=== PATIENT | female | born 1960 | race Two or more races ===

== ENCOUNTER → 2017-02-14 | Outpatient (REF) | payer OTHER ==
[2017-02-14 12:27] LABS: MEAN CORPUSCULAR HEMOGLOBIN 31.2 pg (27.0-33.0); MEAN CORPUSCULAR HGB CONC 33.7 g/dl (32.0-36.5); MEAN CORPUSCULAR VOLUME 92.5 fl (80.0-96.0); RED CELL DISTRIBUTION WIDTH 12.6 % (11.5-14.5); WHITE BLOOD COUNT 5.1 K/mm3 (4.0-10.0)
[2017-02-14 12:40] LABS: ALBUMIN 3.9 GM/DL (3.2-5.2); ALBUMIN/GLOBULIN RATIO 1.03 (1.00-1.93); ALKALINE PHOSPHATASE 71 U/L (45-117); ALT/SGPT 24 U/L (12-78); ANION GAP 6 MEQ/L (8-16); AST/SGOT 10 U/L (15-37); BILIRUBIN,TOTAL 0.3 MG/DL (0.2-1.0); BLOOD UREA NITROGEN 16 MG/DL (7-18); CARBON DIOXIDE LEVEL 30 MEQ/L (21-32); CHLORIDE LEVEL 103 MEQ/L (98-107); CHOLESTEROL LEVEL 208 MG/DL (<200); CREATININE FOR GFR 0.69 MG/DL (0.55-1.02); GLOMERULAR FILTRATION RATE > 60.0 (>51); GLUCOSE, FASTING 237 MG/DL (70-105); SODIUM LEVEL 139 MEQ/L (136-145); TOTAL PROTEIN 7.7 GM/DL (6.4-8.2); TRIGLYCERIDES LEVEL 128 MG/DL (<150)
== END ==
LOC: M SFHCADAM 09:08
PROVIDERS: ATTEND Physician Assistant
DX: R06.09 Other forms of dyspnea (principal); Z13.220 Encounter for screening for lipoid disorders; Z13.1 Encounter for screening for diabetes mellitus

== ENCOUNTER → 2017-03-17 | Outpatient (REF) | payer OTHER ==
[2017-03-17 13:59] LABS: ANION GAP 3 MEQ/L (8-16); BLOOD UREA NITROGEN 15 MG/DL (7-18); CALCIUM LEVEL 8.7 MG/DL (8.5-10.1); CARBON DIOXIDE LEVEL 30 MEQ/L (21-32); CHLORIDE LEVEL 105 MEQ/L (98-107); GLOMERULAR FILTRATION RATE > 60.0 (>51); GLUCOSE, FASTING 217 MG/DL (70-105); POTASSIUM SERUM 5.1 MEQ/L (3.5-5.1); SODIUM LEVEL 138 MEQ/L (136-145)
== END ==
LOC: M SFHCPLAZ 08:24
PROVIDERS: ATTEND Physician Assistant
DX: R73.9 Hyperglycemia, unspecified (principal)

== ENCOUNTER → 2017-04-26 | Outpatient (REF) | payer OTHER | LOC: M SFHCADAM 16:08 | PROVIDERS: ATTEND Physician Assistant | DX: E11.9 Type 2 diabetes mellitus without complications (principal) ==

== ENCOUNTER → 2017-04-27 | Outpatient (REF) | payer OTHER | LOC: M SFHCADAM 09:04 | PROVIDERS: ATTEND Physician Assistant | DX: E11.9 Type 2 diabetes mellitus without complications (principal) ==

== ENCOUNTER → 2017-07-31 | Outpatient (REF) | payer OTHER ==
[~2017-07-31] MED LIST: ASPI1TAB PO; ATOR1TAB21 PO; METF10004 PO
[2017-07-31 13:59] LABS: ALBUMIN/GLOBULIN RATIO 1.25 (1.00-1.93); ALKALINE PHOSPHATASE 65 U/L (45-117); ALT/SGPT 35 U/L (12-78); ANION GAP 9 MEQ/L (8-16); AST/SGOT 14 U/L (15-37); BILIRUBIN,TOTAL 0.5 MG/DL (0.2-1.0); BLOOD UREA NITROGEN 17 MG/DL (7-18); CARBON DIOXIDE LEVEL 28 MEQ/L (21-32); CHLORIDE LEVEL 106 MEQ/L (98-107); CREATININE FOR GFR 0.59 MG/DL (0.55-1.02); GLOMERULAR FILTRATION RATE > 60.0 (>51); GLUCOSE, FASTING 150 MG/DL (70-105); POTASSIUM SERUM 4.7 MEQ/L (3.5-5.1); SODIUM LEVEL 143 MEQ/L (136-145); TOTAL PROTEIN 7.2 GM/DL (6.4-8.2)
== END ==
LOC: M SFHCADAM 08:05
PROVIDERS: ATTEND Physician Assistant
DX: E11.9 Type 2 diabetes mellitus without complications (principal)

== ENCOUNTER 2017-08-18 09:13 | Outpatient (CLI) | payer OTHER ==
[~2017-08-18] VITALS: Ht 154.9 cm; Wt 74.4 kg
[2017-08-18] MEDS ORDERED: NS 1,000 ML IV ONE (09:30)
[2017-08-18] MEDS ORDERED: PROPOFOL 200 MG/20 ML VIAL As Ordered ONE (09:34)
--- NOTE | 2017-08-18 10:18 | ROOR ---
Patient Name: Yasmeen rAmando Procedure Date: 08/18/2017 9:56 AM Date of : 1960 Age: 57 Room: [facility] Gender: Female Note Status: Finalized Procedure: Total Colonoscopy to Cecum Indications: Screening for colorectal malignant neoplasm Providers: Chris Sprague MD Referring MD: KEIRA Cherry Requesting Provider: Medicines: Monitored Anesthesia Care Complications: No immediate complications. Procedure: Pre-Anesthesia Assessment: - The heart rate, respiratory rate, oxygen saturations, blood pressure, adequacy of pulmonary ventilation, and response to care were monitored throughout the procedure. The Colonoscope was introduced through the anus and advanced to the cecum, identified by appendiceal orifice and ileocecal valve. The colonoscopy was performed without difficulty. The patient tolerated the procedure well. The quality of the bowel preparation was excellent. Findings: The perianal and digital rectal examinations were normal. Non-bleeding internal hemorrhoids were found during retroflexion. The hemorrhoids were small and Grade I (internal hemorrhoids that do not prolapse). Multiple small and large-mouthed diverticula were found in the recto-sigmoid colon, sigmoid colon and descending colon. The exam was otherwise without abnormality on direct and retroflexion views. Impression: - Non-bleeding internal hemorrhoids. - Diverticulosis in the recto-sigmoid colon, in the sigmoid colon and in the descending colon. - The examination was otherwise normal on direct and retroflexion views. - No specimens collected. - The exam was otherwise normal to the cecum. Recommendation: - Patient has a contact number available for emergencies. The signs and symptoms of potential delayed complications were discussed with the patient. Return to normal activities tomorrow. Written discharge instructions were provided to the patient. - High fiber diet. - Discharge patient to home. - Continue present medications. - Repeat colonoscopy in 10 years for screening purposes. - Return to referring physician. - The findings and recommendations were discussed with the patient's family. Chris Sprague MD Crhis Sprague MD 08/18/2017 10:17:41 AM This report has been signed electronically. Number of Addenda: 0 Note Initiated On: 08/18/2017 9:56 AM Estimated Blood Loss: Estimated blood loss: none.
[2017-08-18 10:42] VITALS: BP 133/59
== END 2017-08-18 10:48 | disposition home or self-care (01) ==
LOC: M OPP 09:13
PROVIDERS: ATTEND Internal Medicine Gastroenterology
DX: Z12.11 Encounter for screening for malignant neoplasm of colon (principal); K64.0 First degree hemorrhoids; K57.30 Diverticulosis of large intestine without perforation or abscess without bleeding; E78.5 Hyperlipidemia, unspecified; E11.9 Type 2 diabetes mellitus without complications; Z78.0 Asymptomatic menopausal state; R06.83 Snoring; Z79.82 Long term (current) use of aspirin; Z79.84 Long term (current) use of oral hypoglycemic drugs; Z79.899 Other long term (current) drug therapy

== ENCOUNTER → 2017-10-28 | Outpatient (REF) | payer OTHER ==
[2017-10-28 12:54] LABS: ANION GAP 8 MEQ/L (8-16); BLOOD UREA NITROGEN 18 MG/DL (7-18); CALCIUM LEVEL 9.4 MG/DL (8.5-10.1); CARBON DIOXIDE LEVEL 29 MEQ/L (21-32); CHLORIDE LEVEL 103 MEQ/L (98-107); CREATININE FOR GFR 0.63 MG/DL (0.55-1.02); GLOMERULAR FILTRATION RATE > 60.0 (>51); GLUCOSE, FASTING 149 MG/DL (70-105); POTASSIUM SERUM 4.7 MEQ/L (3.5-5.1); SODIUM LEVEL 140 MEQ/L (136-145)
== END ==
LOC: M SFHCADAM 09:02
PROVIDERS: ATTEND Physician Assistant
DX: E11.9 Type 2 diabetes mellitus without complications (principal)

== ENCOUNTER → 2018-06-18 | Outpatient (REF) | payer OTHER ==
[2018-06-18 13:53] LABS: ALBUMIN 3.9 GM/DL (3.2-5.2); ALBUMIN/GLOBULIN RATIO 1.05 (1.00-1.93); ALKALINE PHOSPHATASE 60 U/L (45-117); ALT/SGPT 42 U/L (12-78); ANION GAP 7 MEQ/L (8-16); AST/SGOT 21 U/L (7-37); BILIRUBIN,TOTAL 0.4 MG/DL (0.2-1.0); BLOOD UREA NITROGEN 15 MG/DL (7-18); CARBON DIOXIDE LEVEL 28 MEQ/L (21-32); CHLORIDE LEVEL 107 MEQ/L (98-107); CHOLESTEROL LEVEL 110 MG/DL (<200); CHOLESTEROL RISK RATIO 2.037 (<5); CREATININE FOR GFR 0.72 MG/DL (0.55-1.30); FREE T4 1.01 NG/DL (0.76-1.46); GLOMERULAR FILTRATION RATE > 60.0 (>51); GLUCOSE, FASTING 140 MG/DL (70-100); HDL CHOLESTEROL 54 MG/DL (>40); LDL CHOLESTEROL 41.6 MG/DL (<100); NON-HDL-C 56 MG/DL; SODIUM LEVEL 142 MEQ/L (136-145); TOTAL PROTEIN 7.6 GM/DL (6.4-8.2); TRIGLYCERIDES LEVEL 72 MG/DL (<150)
[2018-06-18 14:00] LABS: POTASSIUM SERUM 5.2 MEQ/L (3.5-5.1)
[2018-06-18 14:32] LABS: ESTIMATED AVERAGE GLUCOSE 160 MG/DL (60-110); HEMOGLOBIN A1c 7.2 %
[2018-06-19 13:47] LABS: CREATININE, URINE 62.2 MG/DL; MALB URINE SIEMENS 6.3 MG/L; MAU/CREAT RATIO 10.1 MCG/MG (0.0-30.0)
== END ==
LOC: M SFHCADAM 09:09
DX: E11.9 Type 2 diabetes mellitus without complications (principal)
CPT/HCPCS: 84443

== ENCOUNTER → 2018-10-12 | Outpatient (REF) | payer OTHER ==
[2018-10-12 13:45] LABS: ANION GAP 6 MEQ/L (8-16); BLOOD UREA NITROGEN 16 MG/DL (7-18); CARBON DIOXIDE LEVEL 30 MEQ/L (21-32); CHLORIDE LEVEL 101 MEQ/L (98-107); FREE T4 1.07 NG/DL (0.76-1.46); GLOMERULAR FILTRATION RATE > 60.0 (>51); GLUCOSE, FASTING 170 MG/DL (70-100); SODIUM LEVEL 137 MEQ/L (136-145)
[2018-10-12 14:27] LABS: ESTIMATED AVERAGE GLUCOSE 166 MG/DL (60-110); HEMOGLOBIN A1c 7.4 %
== END ==
LOC: M SFHCADAM 09:56
DX: E11.9 Type 2 diabetes mellitus without complications (principal); E03.9 Hypothyroidism, unspecified

== ENCOUNTER → 2018-10-13 | Outpatient (CLI) | payer OTHER | LOC: M WHC 08:06 | DX: Z12.31 Encounter for screening mammogram for malignant neoplasm of breast (principal) | CPT/HCPCS: 77067 ==

== ENCOUNTER → 2019-02-25 | Outpatient (REF) | payer OTHER ==
[~2019-02-25] MED LIST changes: -ASPI1TAB PO; +ASPI81TA26 PO
[2019-02-25 12:42] LABS: ALBUMIN 4.2 GM/DL (3.2-5.2); ALT/SGPT 28 U/L (12-78); BILIRUBIN,TOTAL 0.4 MG/DL (0.2-1.0); BLOOD UREA NITROGEN 19 MG/DL (7-18); CALCIUM LEVEL 9.2 MG/DL (8.5-10.1); CARBON DIOXIDE LEVEL 27 MEQ/L (21-32); CHLORIDE LEVEL 106 MEQ/L (98-107); CREATININE FOR GFR 0.73 MG/DL (0.55-1.30); GLOMERULAR FILTRATION RATE > 60.0 (>51); GLUCOSE, FASTING 138 MG/DL (70-100); POTASSIUM SERUM 4.7 MEQ/L (3.5-5.1); SODIUM LEVEL 139 MEQ/L (136-145); TOTAL PROTEIN 7.5 GM/DL (6.4-8.2)
[2019-02-25 13:03] LABS: HEMOGLOBIN A1c 7.2 %
== END ==
LOC: M SFHCADAM 08:30
PROVIDERS: ATTEND Physician Assistant
DX: E11.9 Type 2 diabetes mellitus without complications (principal); E78.5 Hyperlipidemia, unspecified

== ENCOUNTER 2019-03-14 09:50 | Emergency (ER) | payer OTHER ==
[~2019-03-14] VITALS: Ht 152.4 cm; Wt 76.8 kg
[2019-03-14 09:51] VITALS: BP 143/71
[2019-03-14] MEDS ORDERED: VALT1TAB PO (10:39)
[2019-03-14] MEDS ORDERED: valACYclovir HCL 500 MG TAB PO ONE (10:45)
== END 2019-03-14 10:57 | disposition home or self-care (01) ==
LOC: M ED 09:50
DX: R21 Rash and other nonspecific skin eruption (principal); B02.9 Zoster without complications; B34.9 Viral infection, unspecified; E11.9 Type 2 diabetes mellitus without complications; E78.9 Disorder of lipoprotein metabolism, unspecified; Z79.899 Other long term (current) drug therapy; Z79.82 Long term (current) use of aspirin

== ENCOUNTER 2019-06-24 12:30 | Emergency (ER) | payer OTHER ==
[~2019-06-24] VITALS: Ht 152.4 cm; Wt 72.7 kg
[~2019-06-24 12:30] MED LIST changes: +VALT1TAB PO
[2019-06-24] MEDS ORDERED: LEVO50TA5 (12:47)
[2019-06-24] MEDS ORDERED: STEG15TA (12:47)
[2019-06-24] MEDS ORDERED: LORA-674 (12:47)
[2019-06-24 13:21] LABS: BASO # 0.1 10^3/uL (0.0-0.2); BASO % 0.8 % (0.0-1.0); EOS % 0.3 % (0.0-3.0); HEMATOCRIT 41.7 % (36.0-47.0); HEMOGLOBIN 14.4 g/dl (12.0-15.5); LYMPH # 1.9 10^3/uL (1.5-4.5); LYMPH % 21.6 % (24.0-44.0); MEAN CORPUSCULAR HEMOGLOBIN 32.5 pg (27.0-33.0); MEAN CORPUSCULAR HGB CONC 34.5 g/dl (32.0-36.5); MEAN CORPUSCULAR VOLUME 94.1 fl (80.0-96.0); MONO # 0.4 10^3/uL (0.0-0.8); MONO % 4.8 % (0.0-5.0); NEUTROPHILS # 6.3 10^3/uL (1.8-7.7); NEUTROPHILS % 71.8 % (36.0-66.0); PLATELET COUNT, AUTOMATED 332 10^3/uL (150-450); RED BLOOD COUNT 4.43 10^6/uL (4.00-5.40); WHITE BLOOD COUNT 8.8 10^3/uL (4.0-10.0)
[2019-06-24] MEDS ORDERED: GI COCKTAIL 50ML BTL(HYOSCYAMINE/MAALOX/LIDOCAINE VISCOUS)(1:3:1) PO ONE (13:30)
[2019-06-24 13:51] LABS: ALT/SGPT 32 U/L (12-78); BILIRUBIN,DIRECT 0.1 MG/DL (0.0-0.2); BILIRUBIN,TOTAL 0.5 MG/DL (0.2-1.0); BLOOD UREA NITROGEN 20 MG/DL (7-18); CALCIUM LEVEL 9.8 MG/DL (8.5-10.1); CARBON DIOXIDE LEVEL 24 MEQ/L (21-32); CHLORIDE LEVEL 108 MEQ/L (98-107); CK-MB VALUE MASS < 1.0 NG/ML (<3.6); CPK CREATINE PHOSPHOKINASE 72 U/L (26-192); CREATININE FOR GFR 0.78 MG/DL (0.55-1.30); GLOMERULAR FILTRATION RATE > 60.0 (>51); GLUCOSE, FASTING 144 MG/DL (70-100); LIPASE 142 U/L (73-393); MB/CK RELATIVE INDEX 1.39 (< OR =4); MYOGLOBIN 22 NG/ML (13-71); POTASSIUM SERUM 4.5 MEQ/L (3.5-5.1); SODIUM LEVEL 139 MEQ/L (136-145); TOTAL PROTEIN 7.8 GM/DL (6.4-8.2); TROPONIN I < 0.02 NG/ML (< 0.10)
[2019-06-24] MEDS ORDERED: CLOTCRE3 TOP (15:39)
--- NOTE | 2019-06-24 15:40 | REP ---
CHEST, TWO VIEWS: There is no evidence of acute infiltrate. No pleural effusion is seen. The heart is normal in size. The mediastinal silhouette is unremarkable. The visualized osseous structures are intact. IMPRESSION: No acute pulmonary disease. Electronically Signed by Zain Hernandez MD 06/25/2019 09:26 A
[2019-06-24 16:23] LABS: CK-MB VALUE MASS < 1.0 NG/ML (<3.6); CPK CREATINE PHOSPHOKINASE 75 U/L (26-192); MB/CK RELATIVE INDEX 1.33 (< OR =4); TROPONIN I < 0.02 NG/ML (< 0.10)
[2019-06-24] MEDS ORDERED: CARA1TAB6 PO (16:33)
[2019-06-24 16:39] VITALS: BP 127/73
--- NOTE | 2019-06-26 07:42 | ECGEPIP ---
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
== END 2019-06-24 17:20 | disposition home or self-care (01) ==
LOC: M ED 12:30
DX: E86.0 Dehydration (principal); L30.4 Erythema intertrigo; K29.70 Gastritis, unspecified, without bleeding; E11.9 Type 2 diabetes mellitus without complications; E03.9 Hypothyroidism, unspecified; E78.5 Hyperlipidemia, unspecified; Z86.19 Personal history of other infectious and parasitic diseases; Z82.49 Family history of ischemic heart disease and other diseases of the circulatory system; Z79.899 Other long term (current) drug therapy; Z79.84 Long term (current) use of oral hypoglycemic drugs; Z79.82 Long term (current) use of aspirin

== ENCOUNTER → 2019-07-10 | Outpatient (REF) | payer OTHER ==
[~2019-07-10] MED LIST changes: +CARA1TAB6 PO; +CLOTCRE3 TOP; +LEVO50TA5; +LORA-674; +STEG15TA
[2019-07-10 17:04] LABS: BLOOD UREA NITROGEN 15 MG/DL (7-18); CALCIUM LEVEL 8.8 MG/DL (8.5-10.1); CARBON DIOXIDE LEVEL 30 MEQ/L (21-32); CHLORIDE LEVEL 105 MEQ/L (98-107); CREATININE FOR GFR 0.71 MG/DL (0.55-1.30); GLOMERULAR FILTRATION RATE > 60.0 (>51); GLUCOSE, FASTING 110 MG/DL (70-100); POTASSIUM SERUM 4.5 MEQ/L (3.5-5.1); SODIUM LEVEL 140 MEQ/L (136-145)
[2019-07-10 17:12] LABS: HEMOGLOBIN A1c 7.6 %
[2019-07-10 17:24] LABS: MALB URINE SIEMENS 11.4 MG/L
== END ==
LOC: M SFHCADAM 10:51
PROVIDERS: ATTEND Physician Assistant
DX: E11.9 Type 2 diabetes mellitus without complications (principal)

== ENCOUNTER → 2019-07-10 | Outpatient (CLI) | payer OTHER | LOC: M ADAMS 10:58 | PROVIDERS: ATTEND Physician Assistant | DX: E11.9 Type 2 diabetes mellitus without complications (principal) ==

== ENCOUNTER → 2020-01-05 | Outpatient (REF) | payer OTHER ==
[2020-01-05 13:08] LABS: HEMATOCRIT 43.7 % (36.0-47.0); HEMOGLOBIN 14.3 g/dl (12.0-15.5); MEAN CORPUSCULAR HEMOGLOBIN 31.8 pg (27.0-33.0); MEAN CORPUSCULAR HGB CONC 32.7 g/dl (32.0-36.5); MEAN CORPUSCULAR VOLUME 97.3 fl (80.0-96.0); PLATELET COUNT, AUTOMATED 376 10^3/uL (150-450); RED BLOOD COUNT 4.49 10^6/uL (4.00-5.40); WHITE BLOOD COUNT 6.6 10^3/uL (4.0-10.0)
[2020-01-05 13:31] LABS: ALBUMIN 4.2 GM/DL (3.2-5.2); ALT/SGPT 38 U/L (12-78); BILIRUBIN,TOTAL 0.5 MG/DL (0.2-1.0); BLOOD UREA NITROGEN 18 MG/DL (7-18); CALCIUM LEVEL 9.6 MG/DL (8.5-10.1); CARBON DIOXIDE LEVEL 29 MEQ/L (21-32); CHLORIDE LEVEL 105 MEQ/L (98-107); CHOLESTEROL LEVEL 128 MG/DL (<200); CREATININE FOR GFR 0.79 MG/DL (0.55-1.30); FREE T4 1.13 NG/DL (0.76-1.46); GLOMERULAR FILTRATION RATE > 60.0 (>51); GLUCOSE, FASTING 146 MG/DL (70-100); HDL CHOLESTEROL 50 MG/DL (>40); LDL CHOLESTEROL 52 MG/DL (<100); NON-HDL-C 78 MG/DL; POTASSIUM SERUM 4.7 MEQ/L (3.5-5.1); SODIUM LEVEL 140 MEQ/L (136-145); TOTAL PROTEIN 7.7 GM/DL (6.4-8.2); TRIGLYCERIDES LEVEL 131 MG/DL (<150)
[2020-01-05 13:53] LABS: HEMOGLOBIN A1c 7.1 %
== END ==
LOC: M SFHCADAM 09:21
PROVIDERS: ATTEND Physician Assistant
DX: E11.9 Type 2 diabetes mellitus without complications (principal); K29.70 Gastritis, unspecified, without bleeding; E03.9 Hypothyroidism, unspecified; E78.5 Hyperlipidemia, unspecified

== ENCOUNTER 2020-02-20 09:48 | Emergency (ER) | payer OTHER ==
[~2020-02-20] VITALS: Ht 152.4 cm; Wt 74.1 kg
[2020-02-20 10:20] LABS: BASO # 0.1 10^3/uL (0.0-0.2); BASO % 0.6 % (0.0-1.0); EOS % 0.2 % (0.0-3.0); HEMOGLOBIN 14.3 g/dl (12.0-15.5); LYMPH # 1.5 10^3/uL (1.5-5.0); LYMPH % 14.1 % (24.0-44.0); MEAN CORPUSCULAR HEMOGLOBIN 31.8 pg (27.0-33.0); MEAN CORPUSCULAR VOLUME 93.3 fl (80.0-96.0); MONO # 0.3 10^3/uL (0.0-0.8); NEUTROPHILS # 8.6 10^3/uL (1.5-8.5); NEUTROPHILS % 81.4 % (36.0-66.0); PLATELET COUNT, AUTOMATED 382 10^3/uL (150-450); WHITE BLOOD COUNT 10.5 10^3/uL (4.0-10.0)
[2020-02-20 10:31] LABS: INR 0.93; PROTHROMBIN TIME 12.2 SECONDS (11.8-14.0)
[2020-02-20 10:32] LABS: PARTIAL THROMBOPLASTIN TIME 28.6 SECONDS (25.0-38.4)
[2020-02-20] MEDS ORDERED: ONDANSETRON 4MG/2ML VIAL (J2405) IV ONE (10:45)
[2020-02-20] MEDS ORDERED: NS 1,000 ML IV ONE (10:45)
[2020-02-20] MEDS ORDERED: HYDROMORPHONE HCL 0.5 MG/ 0.5 ML SYRINGE (J1170 PER 1) IV PRN (10:45)
[2020-02-20 10:50] LABS: BLOOD UREA NITROGEN 18 MG/DL (7-18); CALCIUM LEVEL 9.8 MG/DL (8.5-10.1); CARBON DIOXIDE LEVEL 26 MEQ/L (21-32); CHLORIDE LEVEL 104 MEQ/L (98-107); CK-MB VALUE MASS < 1.0 NG/ML (<3.6); CPK CREATINE PHOSPHOKINASE 65 U/L (26-192); CREATININE FOR GFR 0.79 MG/DL (0.55-1.30); FREE T4 1.24 NG/DL (0.76-1.46); GLOMERULAR FILTRATION RATE > 60.0 (>51); GLUCOSE, FASTING 182 MG/DL (70-100); MB/CK RELATIVE INDEX 1.54 (< OR =4); POTASSIUM SERUM 3.9 MEQ/L (3.5-5.1); SODIUM LEVEL 137 MEQ/L (136-145); TROPONIN I < 0.02 NG/ML (< 0.10)
[2020-02-20 11:05] LABS: ALBUMIN 4.5 GM/DL (3.2-5.2); BILIRUBIN,DIRECT 0.2 MG/DL (0.0-0.2); BILIRUBIN,TOTAL 0.4 MG/DL (0.2-1.0); TOTAL PROTEIN 8.4 GM/DL (6.4-8.2)
[2020-02-20] MEDS ORDERED: ISOVUE-370 76% 100ML VIAL (Q9967) As Ordered ONE (11:21)
--- NOTE | 2020-02-20 12:17 | REP ---
CHEST, SINGLE VIEW: Single view of the chest is performed and compared to a prior study of 06/24/2019. No acute infiltrate is seen. There is mild left ventricular prominence. Mediastinal silhouette is unremarkable. There is slight elevation of the right hemidiaphragm unchanged. IMPRESSION: No acute pulmonary disease. Electronically Signed by Zain Hernandez MD 02/20/2020 12:23 P
--- NOTE | 2020-02-20 12:46 | REP ---
CT ANGIOGRAM CHEST: TECHNIQUE: Axial contrast enhanced images from the thoracic inlet to the upper abdomen using 100 mL Isovue 370 intravenous contrast material with multiplanar reformations. There is no CT evidence of pulmonary embolism. There is no thoracic aortic aneurysm or dissection. Heart is slightly enlarged. There is no pleura or pericardial effusion. There is no mediastinal, hilar, or chest wall lymphadenopathy. There are mild dependent atelectatic changes in both lungs. IMPRESSION: No CT evidence of pulmonary embolism or aortic dissection. Mild cardiomegaly. Electronically Signed by Zain Hernandez MD 02/20/2020 12:50 P
--- NOTE | 2020-02-20 12:52 | REP ---
CT ABDOMEN AND PELVIS WITH IV CONTRAST: TECHNIQUE: Axial contrast enhanced images from the lung bases to the pubic symphysis using 100 mL Isovue 370 intravenous contrast material with multiplanar reformations. The liver demonstrates a hypodense nodule in the left lobe which measures approximately 9 mm. This is too small to characterize. It probably represents a small cyst or hemangioma. Spleen is normal in size with no intrinsic abnormality. The adrenal glands are normal. No pancreatic mass is seen. There are gallstones in the gallbladder. There is no gallbladder wall thickening. There is no evidence of biliary dilatation. Kidneys demonstrate a probable subcentimeter cyst in the left upper pole as well as right upper pole. There is no hydronephrosis bilaterally. There is no hydroureter. No bladder calculus is seen. There is a small amount of air in the bladder likely from recent catheterization. No bladder wall mass is seen. There is no abdominal aortic aneurysm. There is no adenopathy. There is no free air or free fluid. There are scattered diverticula of the sigmoid colon, without evidence of acute diverticulitis. The appendix is normal. No pelvic mass is seen. There is a subcentimeter calcified fibroid in the left uterus. No anterior abdominal wall defect is seen. IMPRESSION: 9 mm nodule in the left lobe of the liver is of doubtful significance likely representing a small cyst or hemangioma. There are gallstones in the gallbladder without gallbladder wall thickening or biliary dilatation. No free or free fluid. No anterior abdominal wall defect. Mild sigmoid diverticulosis without acute diverticulitis. Small amount of air in the bladder is likely from recent catheterization. Electronically Signed by Zain Hernandez MD 02/20/2020 12:58 P
[2020-02-20 13:36] LABS: CK-MB VALUE MASS < 1.0 NG/ML (<3.6); CPK CREATINE PHOSPHOKINASE 60 U/L (26-192); MB/CK RELATIVE INDEX 1.67 (< OR =4); TROPONIN I < 0.02 NG/ML (< 0.10)
--- NOTE | 2020-02-20 14:24 | REP ---
RIGHT UPPER QUADRANT ULTRASOUND: Real-time sonographic evaluation of the right upper quadrant performed. Gallstone is seen in the neck of the gallbladder which does not appear to move with changes in patient positioning. There is no gallbladder wall thickening or pericholecystic fluid. There is no intrahepatic or extrahepatic biliary dilatation, common bile duct measuring 5 mm. There is a 6 mm cyst in the left lobe of the liver. Visualized pancreas is grossly unremarkable. Right kidney is normal in size with no hydronephrosis measuring 10 cm in length. There is a 6 mm cyst in the mid right kidney. IMPRESSION: Gallstone lodged in the neck of the gallbladder. No gallbladder wall thickening or pericholecystic fluid or biliary dilatation. Electronically Signed by Zain Hernandez MD 02/20/2020 02:40 P
[2020-02-20 14:30] VITALS: BP 131/65
[2020-02-20] MEDS ORDERED: NORC1TAB7 PO (14:42)
[2020-02-20] MEDS ORDERED: ONDA4TAB6 PO (14:42)
--- NOTE | 2020-02-20 19:06 | ECGEPIP ---
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
--- NOTE | 2020-02-20 19:08 | ECGEPIP ---
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
--- NOTE | 2020-02-21 14:36 | ED PDOC ---
Post-Departure Follow-Up dr phipps and nelson douglass faxed formal report of [facility] for [facility] Leta Oliveira MD Feb 21, 2020 14:36
== END 2020-02-20 14:49 | disposition home or self-care (01) ==
LOC: M ED 09:48
DX: K80.50 Calculus of bile duct without cholangitis or cholecystitis without obstruction (principal); K76.89 Other specified diseases of liver; K57.32 Diverticulitis of large intestine without perforation or abscess without bleeding; N28.1 Cyst of kidney, acquired; E11.9 Type 2 diabetes mellitus without complications; I51.7 Cardiomegaly; Z79.84 Long term (current) use of oral hypoglycemic drugs; Z79.899 Other long term (current) drug therapy
CPT/HCPCS: 71045; 71275; 74177; 76705; 80048; 80076; 81001; 82150; 82550; 82553; 83605; 84439; 84443; 85025; 85610; 85730; 86850; 86900; 86901; 93005; 93041; 94760; 96361; 96374; 96375; 99285; J1170; J2405; Q9967

== ENCOUNTER → 2020-07-25 | Outpatient (REF) | payer OTHER ==
[~2020-07-25] MED LIST changes: +NORC1TAB7 PO; +ONDA4TAB6 PO
[2020-07-25 13:53] LABS: ALBUMIN 4.3 GM/DL (3.2-5.2); ALT/SGPT 40 U/L (12-78); BILIRUBIN,TOTAL 0.4 MG/DL (0.2-1.0); BLOOD UREA NITROGEN 14 MG/DL (7-18); CALCIUM LEVEL 9.4 MG/DL (8.5-10.1); CARBON DIOXIDE LEVEL 29 MEQ/L (21-32); CHLORIDE LEVEL 107 MEQ/L (98-107); CREATININE FOR GFR 0.78 MG/DL (0.55-1.30); GLOMERULAR FILTRATION RATE > 60.0 (>51); GLUCOSE, FASTING 128 MG/DL (70-100); POTASSIUM SERUM 4.6 MEQ/L (3.5-5.1); SODIUM LEVEL 140 MEQ/L (136-145)
[2020-07-25 13:59] LABS: VITAMIN B12 LEVEL 272 PG/ML
[2020-07-25 14:04] LABS: FOLATE > 24.0 NG/ML
[2020-07-25 14:18] LABS: MALB URINE SIEMENS 12.3 MG/L; MAU/CREAT RATIO 10.4 MCG/MG (0.0-30.0)
[2020-07-25 14:41] LABS: HEMOGLOBIN A1c 7.3 %
== END ==
LOC: M SFHCADAM 12:50
PROVIDERS: ATTEND Physician Assistant
DX: E11.9 Type 2 diabetes mellitus without complications (principal); E78.9 Disorder of lipoprotein metabolism, unspecified; E03.9 Hypothyroidism, unspecified; K29.70 Gastritis, unspecified, without bleeding; D75.89 Other specified diseases of blood and blood-forming organs

== ENCOUNTER → 2020-12-01 | Outpatient (REF) | payer OTHER ==
[2020-12-01 13:42] LABS: HEMOGLOBIN A1c 6.4 %
[2020-12-01 13:46] LABS: ALBUMIN 4.4 GM/DL (3.2-5.2); ALT/SGPT 48 U/L (12-78); BILIRUBIN,TOTAL 0.5 MG/DL (0.2-1.0); BLOOD UREA NITROGEN 19 MG/DL (7-18); CALCIUM LEVEL 9.4 MG/DL (8.5-10.1); CARBON DIOXIDE LEVEL 28 MEQ/L (21-32); CHLORIDE LEVEL 105 MEQ/L (98-107); CREATININE FOR GFR 0.61 MG/DL (0.55-1.30); GLOMERULAR FILTRATION RATE > 60.0 (>51); GLUCOSE, FASTING 104 MG/DL (70-100); POTASSIUM SERUM 4.7 MEQ/L (3.5-5.1); SODIUM LEVEL 139 MEQ/L (136-145); TOTAL PROTEIN 7.9 GM/DL (6.4-8.2)
[2020-12-01 13:50] LABS: VITAMIN B12 LEVEL 662 PG/ML
[2020-12-01 13:51] LABS: CREATININE, URINE 90.9 MG/DL; MAU/CREAT RATIO 9.9 MCG/MG (0.0-30.0)
== END ==
LOC: M SFHCADAM 09:28
PROVIDERS: ATTEND Physician Assistant
DX: E11.9 Type 2 diabetes mellitus without complications (principal); D75.89 Other specified diseases of blood and blood-forming organs

== ENCOUNTER → 2021-05-25 | Outpatient (REF) | payer OTHER ==
[2021-05-25 13:16] LABS: HEMOGLOBIN A1c 6.8 %
[2021-05-25 13:31] LABS: ALBUMIN 4.2 GM/DL (3.2-5.2); ALT/SGPT 35 U/L (12-78); BILIRUBIN,TOTAL 0.4 MG/DL (0.2-1.0); BLOOD UREA NITROGEN 19 MG/DL (7-18); CALCIUM LEVEL 9.3 MG/DL (8.5-10.1); CARBON DIOXIDE LEVEL 28 MEQ/L (21-32); CHLORIDE LEVEL 105 MEQ/L (98-107); CREATININE FOR GFR 0.74 MG/DL (0.55-1.30); GLOMERULAR FILTRATION RATE > 60.0 (>51); GLUCOSE, FASTING 124 MG/DL (70-100); POTASSIUM SERUM 5.1 MEQ/L (3.5-5.1); SODIUM LEVEL 139 MEQ/L (136-145); TOTAL PROTEIN 7.6 GM/DL (6.4-8.2)
[2021-05-25 13:34] LABS: FOLATE 13.4 NG/ML; VITAMIN B12 LEVEL 473 PG/ML
== END ==
LOC: M SFHCADAM 07:59
PROVIDERS: ATTEND Physician Assistant
DX: E11.9 Type 2 diabetes mellitus without complications (principal)

== ENCOUNTER 2021-10-22 11:04 | Emergency (ER) | payer OTHER ==
[~2021-10-22] VITALS: Ht 152.4 cm; Wt 72.8 kg
--- OUTSIDE RECORDS SUMMARY | 2021-10-22 11:10 | CCD ---
Author Author [facility] Organization [facility] Address Unknown Phone Unavailable Care Team Providers Care Manager Embalmer Funeral Director Name Role Phone Fadi Cha MD Unavailable Unavailable Fadi Cha MD Unavailable Unavailable Fadi Cha MD Unavailable Unavailable Fadi Cha MD Unavailable Unavailable Fadi Cha MD Unavailable Unavailable Fadi Cha MD Unavailable Unavailable Fadi Cha MD Unavailable Unavailable Fadi Cha MD Unavailable Unavailable Fadi Cha MD Unavailable Unavailable Fadi Cha MD Unavailable Unavailable Fadi Cha MD Unavailable Unavailable Fadi Cha MD Unavailable Unavailable Fadi Cha MD Unavailable Unavailable Fadi Cha MD Unavailable Unavailable Fadi Cha MD Unavailable Unavailable Fadi Cha MD Unavailable Unavailable Fadi Cha MD Unavailable Unavailable Fadi Cha MD Unavailable Unavailable Fadi Cha MD Unavailable Unavailable Fadi Cha MD Unavailable Unavailable Fadi Cha MD Unavailable Unavailable Fadi Cha MD Unavailable Unavailable Fadi Cha MD Unavailable Unavailable Fadi Cha MD Unavailable Unavailable Fadi Cha MD Unavailable Unavailable Fadi Cha MD Unavailable Unavailable Fadi Cha MD Unavailable Unavailable Fadi Cha MD Unavailable Unavailable Fadi Cha MD Unavailable Unavailable Fadi Cha MD Unavailable Unavailable Fadi Cha MD Unavailable Unavailable Fadi Cha MD Unavailable Unavailable Fadi Cha MD Unavailable Unavailable Fadi Cha MD Unavailable Unavailable Fadi Cha MD Unavailable Unavailable Fadi Cha MD Unavailable Unavailable Fadi Cha MD Unavailable Unavailable Fadi Cha MD Unavailable Unavailable Fadi Cha MD Unavailable Unavailable Fadi Cha MD Unavailable Unavailable Fadi Cha MD Unavailable Unavailable Fadi Cha MD Unavailable Unavailable Fadi Cha MD Unavailable Unavailable Fadi Cha MD Unavailable Unavailable Fadi Cha MD Unavailable Unavailable Fadi Cha MD Unavailable Unavailable Fadi Cha MD Unavailable Unavailable Fadi Cha MD Unavailable Unavailable Fadi Cha MD Unavailable Unavailable Fadi Cha MD Unavailable Unavailable Fadi Cha MD Unavailable Unavailable Fadi Cha MD Unavailable Unavailable Fadi Cha MD Unavailable Unavailable Fadi Cha MD Unavailable Unavailable Fadi Cha MD Unavailable Unavailable Fadi Cha MD Unavailable Unavailable Fadi Cha MD Unavailable Unavailable Fadi Cha MD Unavailable Unavailable Fadi Cha MD Unavailable Unavailable Fadi Cha MD Unavailable Unavailable Fadi Cha MD Unavailable Unavailable Fadi Cha MD Unavailable Unavailable Fadi Cha MD Unavailable Unavailable Fadi Cha MD Unavailable Unavailable Fadi Cha MD Unavailable Unavailable Fadi Cha MD Unavailable Unavailable Fadi Cha MD Unavailable Unavailable Fadi Cha MD Unavailable Unavailable Fadi Cha MD Unavailable Unavailable Fadi Cha MD Unavailable Unavailable Fadi Cha MD Unavailable Unavailable Fadi Cha MD Unavailable Unavailable Fadi Cha MD Unavailable Unavailable Fadi Cha MD Unavailable Unavailable Fadi hCa MD Unavailable Unavailable Fadi Cha MD Unavailable Unavailable Fadi Cha MD Unavailable Unavailable Fadi Cha MD Unavailable Unavailable Fadi Cha MD Unavailable Unavailable Fadi Cha MD Unavailable Unavailable Fadi Cha MD Unavailable Unavailable Fadi Cha MD Unavailable Unavailable Fadi Cha MD Unavailable Unavailable Fadi Cha MD Unavailable Unavailable Fadi Cha MD Unavailable Unavailable Fadi Cha MD Unavailable Unavailable Fadi Cha MD Unavailable Unavailable Fadi Cha MD Unavailable Unavailable Fadi Cha MD Unavailable Unavailable Fadi Cha MD Unavailable Unavailable Fadi Cha MD Unavailable Unavailable Fadi Cha MD Unavailable Unavailable Fadi Cha MD Unavailable Unavailable Fadi Cha MD Unavailable Unavailable Gan, Pratt Cheryl Unavailable Unavailable Gan, Pratt Cheryl Unavailable Unavailable Gan, Pratt Cheryl Unavailable Unavailable Gan, Pratt Cheryl Unavailable Unavailable Gan, Pratt Cheryl Unavailable Unavailable Gan, Pratt Cheryl Unavailable Unavailable Gan, Pratt Cheryl Unavailable Unavailable Gan, Pratt Cheryl Unavailable Unavailable Gan, Pratt Cheryl Unavailable Unavailable Gan, Pratt Cheryl Unavailable Unavailable Gan, Pratt Cheryl Unavailable Unavailable Gan, Pratt Cheryl Unavailable Unavailable Gan, Pratt Cheryl Unavailable Unavailable Re-disclosure Warning The records that you are about to access may contain information from federally-assisted alcohol or drug abuse programs. If such information is present, then the following federally mandated warning applies: This information has been disclosed to you from records protected by federal confidentiality rules (42 CFR part 2). The federal rules prohibit you from making any further disclosure of this information unless further disclosure is expressly permitted by the written consent of the person to whom it pertains or as otherwise permitted by 42 CFR part 2. A general authorization for the release of medical or other information is NOT sufficient for this purpose. The Federal rules restrict any use of the information to criminally investigate or prosecute any alcohol or drug abuse patient.The records that you are about to access may contain highly sensitive health information, the redisclosure of which is protected by Article 27-F of the [facility] Public Health law. If you continue you may have access to information: Regarding HIV / AIDS; Provided by facilities licensed or operated by the [facility] Office of Mental Health; or Provided by the [facility] Office for People With Developmental Disabilities. If such information is present, then the following [facility] mandated warning applies: This information has been disclosed to you from confidential records which are protected by state law. State law prohibits you from making any further disclosure of this information without the specific written consent of the person to whom it pertains, or as otherwise permitted by law. Any unauthorized further disclosure in violation of state law may result in a fine or alf sentence or both. A general authorization for the release of medical or other information is NOT sufficient authorization for further disc losure. Allergies and Adverse Reactions Type Description Substance Reaction Status Data Source(s ) Allergy to substance Allergy to substance Allergy to substance PILLO ([facility]) Allergy to substance Allergy to substance Allergy to substance CORVALLIS ([facility]) Family History Family Member Name Family Member Gender Family Member Status Date o f Status Description Data Source(s) Unknown Unknown Problem MEDENT ([facility] Unknown Unknown Problem MEDENT ([facility]) SIBLINGS Unknown Unknown Problem MEDENT ([facility]) Unknown Unknown Problem MEDENT ([facility]) Unknown Unknown Problem MEDENT ([facility]) Encounters Encounter Providers Location Date Indications Data Source(s ) [place] [address] [facility] [address] 09/05/2021 12:00:00 AM EDT eCW1 ([facility]) [place] [address] [facility] [address] 06/05/2021 12:00:00 AM EDT eCW1 ([facility]) Out[place] [address] [facility] [address] 05/29/2021 12:00:00 AM EDT eCW1 ([facility]) [place] [address] [facility] [address] 03/05/2021 12:00:00 AM EDT eCW1 ([facility]) [facility]: [address] [place] [phone], Ph. Attender: Cheryl Gan [facility] 02/07/2021 12:00:00 AM EDT PILLO ([facility]) Hipolito Cha MD: [address] [place] [address], Ph. Attender: Hipolito Cha MD [facility] 01/10/2021 12:00:00 AM EST PILLO ([facility]) Hipolito Cha MD: [address] [place] [address], Ph. Attender: Hipolito Cha MD [facility] 01/10/2021 12:00:00 AM EST [place] ([facility]) [place] [address] [facility] [address] 10/04/2020 12:00:00 AM EST eCW1 ([facility]) Unknown [address] [facility] [address] 09/07/2020 12:00:00 AM EDT eCW1 ([facility]) Immunizations Vaccine Date Status Description Data Source(s) COVID-19, mRNA, LNP-S, PF, 100 mcg/0.5 mL dose 02/07/2021 10 :22:08 AM EDT completed 10.5 mL PILLO ([facility]) COVID-19 VACCINE Moderna 02/07/2021 12:00:00 AM EDT completed AZSIIS Vaccine Series Complete: YESThis Data wa s Submitted to [facility] Via [facility] [employer]. COVID-19, mRNA, LNP-S, PF, 100 mcg/0.5 mL dose 01/10/2021 05 :23:58 PM EST completed 10.5 mL PILLO ([facility]) COVID-19, mRNA, LNP-S, PF, 100 mcg/0.5 mL dose 01/10/2021 05 :23:58 PM EST completed .5 mL PILLO ([facility]) COVID-19 VACCINE Moderna 01/10/2021 12:00:00 AM EST completed AZSIIS Vaccine Series Complete: NOThis Data was Submitted to [facility] [employer]. Medications Medication Brand Name Start Date Product Form Dose Route Admi nistrative Instructions Pharmacy Instructions Status Indications Reaction Description Data Source(s) 50 mcg 10/03/2021 12:00:00 AM EST tablet 30 TAKE ONE TABLET BY MOUTH EVERY MORNING ON AN EMPTY STOMACH TAKE ONE TABLET BY MOUTH EVERY MORNING O N AN EMPTY STOMACH SOLD: 10/06/2021 [facility] atorvastatin 20 MG Oral Tablet ATORVASTATIN CALCIUM 09/05/2021 1 2:00:00 AM EDT tablet 30 TAKE ONE TABLET BY MOUTH AT BEDT CARLOS TAKE ONE TABLET BY MOUTH AT BEDTIME SOLD: 10/06/2021 [facility] atorvastatin 20 MG Oral Tablet ATORVASTATIN CALCIUM 09/05/2021 1 2:00:00 AM EDT tablet 30 TAKE ONE TABLET BY MOUTH AT BEDT CARLOS TAKE ONE TABLET BY MOUTH AT BEDTIME SOLD: 09/05/2021 [facility] 81 mg 09/04/2021 12:00:00 AM EDT tablet,delayed release (DR/EC) 30 TAKE ONE TABLET BY MOUTH EVERY DAY TAKE ONE TABLET BY MOUTH EVERY DAY SOLD: 09/05/2021 [facility] 81 mg 09/04/2021 12:00:00 AM EDT tablet,delayed release (DR/EC) 30 TAKE ONE TABLET BY MOUTH EVERY DAY TAKE ONE TABLET BY MOUTH EVERY DAY SOLD: 10/06/2021 [facility] 15 mg 08/02/2021 12:00:00 AM EDT tablet 30 TAKE ONE TABLET BY MOUTH EVERY DAY TAKE ONE TABLET BY MOUTH EVERY DAY SOLD: 08/07/2021 [facility] 15 mg 08/02/2021 12:00:00 AM EDT tablet 30 TAKE ONE TABLET BY MOUTH EVERY DAY TAKE ONE TABLET BY MOUTH EVERY DAY SOLD: 09/05/2021 [facility] 15 mg 08/02/2021 12:00:00 AM EDT tablet 30 TAKE ONE TABLET BY MOUTH EVERY DAY TAKE ONE TABLET BY MOUTH EVERY DAY SOLD: 10/06/2021 [facility] 1,000 mg 06/06/2021 12:00:00 AM EDT tablet 60 TAKE ONE TABLET BY MOUTH TWICE A DAY WITH MEALS TAKE ONE TABLET BY MOUTH TWICE A DAY WITH MEALS SOLD: 10/06/2021 [facility] 1,000 mg 06/06/2021 12:00:00 AM EDT tablet 60 TAKE ONE TABLET BY MOUTH TWICE A DAY WITH MEALS TAKE ONE TABLET BY MOUTH TWICE A DAY WITH MEALS SOLD: 07/07/2021 [facility] 1,000 mg 06/06/2021 12:00:00 AM EDT tablet 60 TAKE ONE TABLET BY MOUTH TWICE A DAY WITH MEALS TAKE ONE TABLET BY MOUTH TWICE A DAY WITH MEALS SOLD: 09/05/2021 [facility] 1,000 mg 06/06/2021 12:00:00 AM EDT tablet 60 TAKE ONE TABLET BY MOUTH TWICE A DAY WITH MEALS TAKE ONE TABLET BY MOUTH TWICE A DAY WITH MEALS SOLD: 06/07/2021 [facility] 1,000 mg 06/06/2021 12:00:00 AM EDT tablet 60 TAKE ONE TABLET BY MOUTH TWICE A DAY WITH MEALS TAKE ONE TABLET BY MOUTH TWICE A DAY WITH MEALS SOLD: 08/07/2021 [facility] 1.5 mg/0.5 mL 05/08/2021 12:00:00 AM EDT pen injector 2 INJECT 1 DOSE UNDER THE SKIN ONCE WEEKLY INJECT 1 DOSE UNDER THE SKIN ONCE WEEKLY SOLD: 10/02/2021 [facility] 1.5 mg/0.5 mL 05/08/2021 12:00:00 AM EDT pen injector 2 INJECT 1 DOSE UNDER THE SKIN ONCE WEEKLY INJECT 1 DOSE UNDER THE SKIN ONCE WEEKLY SOLD: 05/08/2021 [facility] 1.5 mg/0.5 mL 05/08/2021 12:00:00 AM EDT pen injector 2 INJECT 1 DOSE UNDER THE SKIN ONCE WEEKLY INJECT 1 DOSE UNDER THE SKIN ONCE WEEKLY SOLD: 07/28/2021 [facility] 1.5 mg/0.5 mL 05/08/2021 12:00:00 AM EDT pen injector 2 INJECT 1 DOSE UNDER THE SKIN ONCE WEEKLY INJECT 1 DOSE UNDER THE SKIN ONCE WEEKLY SOLD: 06/14/2021 [facility] 1.5 mg/0.5 mL 05/08/2021 12:00:00 AM EDT pen injector 2 INJECT 1 DOSE UNDER THE SKIN ONCE WEEKLY INJECT 1 DOSE UNDER THE SKIN ONCE WEEKLY SOLD: 08/26/2021 [facility] 50 mcg 05/05/2021 12:00:00 AM EDT tablet 30 TAKE ONE TABLET BY MOUTH EVERY MORNING ON EMPTY STOMACH TAKE ONE TABLET BY MOUTH EVERY MORNING O N EMPTY STOMACH SOLD: 09/05/2021 [facility] 50 mcg 05/05/2021 12:00:00 AM EDT tablet 30 TAKE ONE TABLET BY MOUTH EVERY MORNING ON EMPTY STOMACH TAKE ONE TABLET BY MOUTH EVERY MORNING O N EMPTY STOMACH SOLD: 08/07/2021 [facility] 50 mcg 05/05/2021 12:00:00 AM EDT tablet 30 TAKE ONE TABLET BY MOUTH EVERY MORNING ON EMPTY STOMACH TAKE ONE TABLET BY MOUTH EVERY MORNING O N EMPTY STOMACH SOLD: 06/07/2021 [facility] 50 mcg 05/05/2021 12:00:00 AM EDT tablet 30 TAKE ONE TABLET BY MOUTH EVERY MORNING ON EMPTY STOMACH TAKE ONE TABLET BY MOUTH EVERY MORNING O N EMPTY STOMACH SOLD: 07/07/2021 [facility] 50 mcg 05/05/2021 12:00:00 AM EDT tablet 30 TAKE ONE TABLET BY MOUTH EVERY MORNING ON EMPTY STOMACH TAKE ONE TABLET BY MOUTH EVERY MORNING O N EMPTY STOMACH SOLD: 05/08/2021 [facility] 81 mg 04/04/2021 12:00:00 AM EDT tablet,delayed release (DR/EC) 30 TAKE ONE TABLET BY MOUTH EVERY DAY TAKE ONE TABLET BY MOUTH EVERY DAY SOLD: 05/08/2021 [facility] 81 mg 04/04/2021 12:00:00 AM EDT tablet,delayed release (DR/EC) 30 TAKE ONE TABLET BY MOUTH EVERY DAY TAKE ONE TABLET BY MOUTH EVERY DAY SOLD: 08/07/2021 [facility] 15 mg 04/04/2021 12:00:00 AM EDT tablet 30 TAKE ONE TABLET BY MOUTH EVERY DAY TAKE ONE TABLET BY MOUTH EVERY DAY SOLD: 07/07/2021 [facility] 15 mg 04/04/2021 12:00:00 AM EDT tablet 30 TAKE ONE TABLET BY MOUTH EVERY DAY TAKE ONE TABLET BY MOUTH EVERY DAY SOLD: 05/08/2021 [facility] 81 mg 04/04/2021 12:00:00 AM EDT tablet,delayed release (DR/EC) 30 TAKE ONE TABLET BY MOUTH EVERY DAY TAKE ONE TABLET BY MOUTH EVERY DAY SOLD: 04/08/2021 [facility] 81 mg 04/04/2021 12:00:00 AM EDT tablet,delayed release (DR/EC) 30 TAKE ONE TABLET BY MOUTH EVERY DAY TAKE ONE TABLET BY MOUTH EVERY DAY SOLD: 06/07/2021 [facility] 81 mg 04/04/2021 12:00:00 AM EDT tablet,delayed release (DR/EC) 30 TAKE ONE TABLET BY MOUTH EVERY DAY TAKE ONE TABLET BY MOUTH EVERY DAY SOLD: 07/07/2021 [facility] 15 mg 04/04/2021 12:00:00 AM EDT tablet 30 TAKE ONE TABLET BY MOUTH EVERY DAY TAKE ONE TABLET BY MOUTH EVERY DAY SOLD: 04/08/2021 [facility] 15 mg 04/04/2021 12:00:00 AM EDT tablet 30 TAKE ONE TABLET BY MOUTH EVERY DAY TAKE ONE TABLET BY MOUTH EVERY DAY SOLD: 06/07/2021 [facility] atorvastatin 20 MG Oral Tablet ATORVASTATIN CALCIUM 03/06/2021 1 2:00:00 AM EDT tablet 30 TAKE ONE TABLET BY MOUTH AT BEDT CARLOS TAKE ONE TABLET BY MOUTH AT BEDTIME SOLD: 04/08/2021 [facility] atorvastatin 20 MG Oral Tablet ATORVASTATIN CALCIUM 03/06/2021 1 2:00:00 AM EDT tablet 30 TAKE ONE TABLET BY MOUTH AT BEDT CARLOS TAKE ONE TABLET BY MOUTH AT BEDTIME SOLD: 08/07/2021 [facility] atorvastatin 20 MG Oral Tablet ATORVASTATIN CALCIUM 03/06/2021 1 2:00:00 AM EDT tablet 30 TAKE ONE TABLET BY MOUTH AT BEDT CARLOS TAKE ONE TABLET BY MOUTH AT BEDTIME SOLD: 06/07/2021 [facility] atorvastatin 20 MG Oral Tablet ATORVASTATIN CALCIUM 03/06/2021 1 2:00:00 AM EDT tablet 30 TAKE ONE TABLET BY MOUTH AT BEDT CARLOS TAKE ONE TABLET BY MOUTH AT BEDTIME SOLD: 03/09/2021 [facility] atorvastatin 20 MG Oral Tablet ATORVASTATIN CALCIUM 03/06/2021 1 2:00:00 AM EDT tablet 30 TAKE ONE TABLET BY MOUTH AT BEDT CARLOS TAKE ONE TABLET BY MOUTH AT BEDTIME SOLD: 07/07/2021 [facility] atorvastatin 20 MG Oral Tablet ATORVASTATIN CALCIUM 03/06/2021 1 2:00:00 AM EDT tablet 30 TAKE ONE TABLET BY MOUTH AT BEDT CARLOS TAKE ONE TABLET BY MOUTH AT BEDTIME SOLD: 05/08/2021 [facility] Metformin hydrochloride 1000 MG Oral Tablet 1,000 mg METFORM IN HCL 01/02/2021 12:00:00 AM EST tablet 60 TAKE ONE TABLET BY MOUTH TWO TIMES A DAY WITH MEALS TAKE ONE TABLET BY MOUTH TWO TIMES A DAY WITH MEALS SOLD: 02/07/2021 [facility] 1,000 mg 01/02/2021 12:00:00 AM EST tablet 60 TAKE ONE TABLET BY MOUTH TWO TIMES A DAY WITH MEALS TAKE ONE TABLET BY MOUTH TWO TIMES A DAY WITH MEALS SO LD: 04/08/2021 [facility] 1,000 mg 01/02/2021 12:00:00 AM EST tablet 60 TAKE ONE TABLET BY MOUTH TWO TIMES A DAY WITH MEALS TAKE ONE TABLET BY MOUTH TWO TIMES A DAY WITH MEALS SO LD: 03/09/2021 [facility] Metformin hydrochloride 1000 MG Oral Tablet 1,000 mg METFORM IN HCL 01/02/2021 12:00:00 AM EST tablet 60 TAKE ONE TABLET BY MOUTH TWO TIMES A DAY WITH MEALS TAKE ONE TABLET BY MOUTH TWO TIMES A DAY WITH MEALS SOLD: 01/08/2021 [facility] 1,000 mg 01/02/2021 12:00:00 AM EST tablet 60 TAKE ONE TABLET BY MOUTH TWO TIMES A DAY WITH MEALS TAKE ONE TABLET BY MOUTH TWO TIMES A DAY WITH MEALS SO LD: 05/08/2021 [facility] 50 mcg 12/05/2020 12:00:00 AM EST tablet 30 TAKE ONE TABLET BY MOUTH EVERY DAY IN THE MORNING TAKE ONE TABLET BY MOUTH EVERY DAY IN THE MORNING SOLD : 01/08/2021 [facility] 50 mcg 12/05/2020 12:00:00 AM EST tablet 30 TAKE ONE TABLET BY MOUTH EVERY DAY IN THE MORNING TAKE ONE TABLET BY MOUTH EVERY DAY IN THE MORNING SOLD : 03/09/2021 [facility] 50 mcg 12/05/2020 12:00:00 AM EST tablet 30 TAKE ONE TABLET BY MOUTH EVERY DAY IN THE MORNING TAKE ONE TABLET BY MOUTH EVERY DAY IN THE MORNING SOLD : 12/07/2020 [facility] 50 mcg 12/05/2020 12:00:00 AM EST tablet 30 TAKE ONE TABLET BY MOUTH EVERY DAY IN THE MORNING TAKE ONE TABLET BY MOUTH EVERY DAY IN THE MORNING SOLD : 02/07/2021 [facility] 50 mcg 12/05/2020 12:00:00 AM EST tablet 30 TAKE ONE TABLET BY MOUTH EVERY DAY IN THE MORNING TAKE ONE TABLET BY MOUTH EVERY DAY IN THE MORNING SOLD : 04/08/2021 [facility] 15 mg 11/03/2020 12:00:00 AM EST tablet 30 TAKE ONE TABLET BY MOUTH EVERY DAY TAKE ONE TABLET BY MOUTH EVERY DAY SOLD: 12/07/2020 [facility] 15 mg 11/03/2020 12:00:00 AM EST tablet 30 TAKE ONE TABLET BY MOUTH EVERY DAY TAKE ONE TABLET BY MOUTH EVERY DAY SOLD: 02/07/2021 [facility] 15 mg 11/03/2020 12:00:00 AM EST tablet 30 TAKE ONE TABLET BY MOUTH EVERY DAY TAKE ONE TABLET BY MOUTH EVERY DAY SOLD: 11/07/2020 [facility] 15 mg 11/03/2020 12:00:00 AM EST tablet 30 TAKE ONE TABLET BY MOUTH EVERY DAY TAKE ONE TABLET BY MOUTH EVERY DAY SOLD: 01/08/2021 [facility] 15 mg 11/03/2020 12:00:00 AM EST tablet 30 TAKE ONE TABLET BY MOUTH EVERY DAY TAKE ONE TABLET BY MOUTH EVERY DAY SOLD: 03/09/2021 [facility] 81 mg 10/05/2020 12:00:00 AM EST tablet,delayed release (DR/EC) 30 TAKE ONE TABLET BY MOUTH EVERY DAY TAKE ONE TABLET BY MOUTH EVERY DAY SOLD: 11/07/2020 [facility] 81 mg 10/05/2020 12:00:00 AM EST tablet,delayed release (DR/EC) 30 TAKE ONE TABLET BY MOUTH EVERY DAY TAKE ONE TABLET BY MOUTH EVERY DAY SOLD: 02/07/2021 [facility] 81 mg 10/05/2020 12:00:00 AM EST tablet,delayed release (DR/EC) 30 TAKE ONE TABLET BY MOUTH EVERY DAY TAKE ONE TABLET BY MOUTH EVERY DAY SOLD: 12/07/2020 [facility] 81 mg 10/05/2020 12:00:00 AM EST tablet,delayed release (DR/EC) 30 TAKE ONE TABLET BY MOUTH EVERY DAY TAKE ONE TABLET BY MOUTH EVERY DAY SOLD: 10/07/2020 [facility] 81 mg 10/05/2020 12:00:00 AM EST tablet,delayed release (DR/EC) 30 TAKE ONE TABLET BY MOUTH EVERY DAY TAKE ONE TABLET BY MOUTH EVERY DAY SOLD: 03/09/2021 [facility] 81 mg 10/05/2020 12:00:00 AM EST tablet,delayed release (DR/EC) 30 TAKE ONE TABLET BY MOUTH EVERY DAY TAKE ONE TABLET BY MOUTH EVERY DAY SOLD: 01/08/2021 [facility] atorvastatin 20 MG Oral Tablet ATORVASTATIN CALCIUM 09/07/2020 1 2:00:00 AM EDT tablet 30 TAKE ONE TABLET BY MOUTH AT BEDT CARLOS TAKE ONE TABLET BY MOUTH AT BEDTIME SOLD: 12/07/2020 [facility] atorvastatin 20 MG Oral Tablet ATORVASTATIN CALCIUM 09/07/2020 1 2:00:00 AM EDT tablet 30 TAKE ONE TABLET BY MOUTH AT BEDT CARLOS TAKE ONE TABLET BY MOUTH AT BEDTIME SOLD: 02/07/2021 [facility] atorvastatin 20 MG Oral Tablet ATORVASTATIN CALCIUM 09/07/2020 1 2:00:00 AM EDT tablet 30 TAKE ONE TABLET BY MOUTH AT BEDT CARLOS TAKE ONE TABLET BY MOUTH AT BEDTIME SOLD: 11/07/2020 [facility] atorvastatin 20 MG Oral Tablet ATORVASTATIN CALCIUM 09/07/2020 1 2:00:00 AM EDT tablet 30 TAKE ONE TABLET BY MOUTH AT BEDT CARLOS TAKE ONE TABLET BY MOUTH AT BEDTIME SOLD: 09/09/2020 [facility] atorvastatin 20 MG Oral Tablet ATORVASTATIN CALCIUM 09/07/2020 1 2:00:00 AM EDT tablet 30 TAKE ONE TABLET BY MOUTH AT BEDT CARLOS TAKE ONE TABLET BY MOUTH AT BEDTIME SOLD: 01/08/2021 [facility] atorvastatin 20 MG Oral Tablet ATORVASTATIN CALCIUM 09/07/2020 1 2:00:00 AM EDT tablet 30 TAKE ONE TABLET BY MOUTH AT BEDT CARLOS TAKE ONE TABLET BY MOUTH AT BEDTIME SOLD: 10/07/2020 [facility] 1.5 mg/0.5 mL 08/17/2020 12:00:00 AM EDT pen injector 2 INJECT 1 PEN (1.5 MG) UNDER THE SKIN ONCE WEEKLY INJECT 1 PEN (1.5 MG) UNDER THE SKIN ONCE WEEKLY SOLD: 02/21/2021 [facility] 1.5 mg/0.5 mL 08/17/2020 12:00:00 AM EDT pen injector 2 INJECT 1 PEN (1.5 MG) UNDER THE SKIN ONCE WEEKLY INJECT 1 PEN (1.5 MG) UNDER THE SKIN ONCE WEEKLY SOLD: 12/07/2020 [facility] 1.5 mg/0.5 mL 08/17/2020 12:00:00 AM EDT pen injector 2 INJECT 1 PEN (1.5 MG) UNDER THE SKIN ONCE WEEKLY INJECT 1 PEN (1.5 MG) UNDER THE SKIN ONCE WEEKLY SOLD: 11/07/2020 [facility] 1.5 mg/0.5 mL 08/17/2020 12:00:00 AM EDT pen injector 2 INJECT 1 PEN (1.5 MG) UNDER THE SKIN ONCE WEEKLY INJECT 1 PEN (1.5 MG) UNDER THE SKIN ONCE WEEKLY SOLD: 03/25/2021 [facility] 1.5 mg/0.5 mL 08/17/2020 12:00:00 AM EDT pen injector 2 INJECT 1 PEN (1.5 MG) UNDER THE SKIN ONCE WEEKLY INJECT 1 PEN (1.5 MG) UNDER THE SKIN ONCE WEEKLY SOLD: 10/03/2020 [facility] Metformin hydrochloride 1000 MG Oral Tablet 1,000 mg METFORM IN HCL 07/11/2020 12:00:00 AM EDT tablet 60 TAKE ONE TABLET BY MOUTH TWICE A DAY WITH MEALS TAKE ONE TABLET BY MOUTH TWICE A DAY WITH MEALS SOLD: 11/07/2020 [facility] Metformin hydrochloride 1000 MG Oral Tablet 1,000 mg METFORM IN HCL 07/11/2020 12:00:00 AM EDT tablet 60 TAKE ONE TABLET BY MOUTH TWICE A DAY WITH MEALS TAKE ONE TABLET BY MOUTH TWICE A DAY WITH MEALS SOLD: 09/09/2020 [facility] Metformin hydrochloride 1000 MG Oral Tablet 1,000 mg METFORM IN HCL 07/11/2020 12:00:00 AM EDT tablet 60 TAKE ONE TABLET BY MOUTH TWICE A DAY WITH MEALS TAKE ONE TABLET BY MOUTH TWICE A DAY WITH MEALS SOLD: 10/07/2020 [facility] Metformin hydrochloride 1000 MG Oral Tablet 1,000 mg METFORM IN HCL 07/11/2020 12:00:00 AM EDT tablet 60 TAKE ONE TABLET BY MOUTH TWICE A DAY WITH MEALS TAKE ONE TABLET BY MOUTH TWICE A DAY WITH MEALS SOLD: 12/07/2020 [facility] 50 mcg 06/14/2020 12:00:00 AM EDT tablet 30 TAKE ONE TABLET BY MOUTH EVERY MORNING ON AN EMPTY STOMACH TAKE ONE TABLET BY MOUTH EVERY MORNING O N AN EMPTY STOMACH SOLD: 10/07/2020 [facility] 50 mcg 06/14/2020 12:00:00 AM EDT tablet 30 TAKE ONE TABLET BY MOUTH EVERY MORNING ON AN EMPTY STOMACH TAKE ONE TABLET BY MOUTH EVERY MORNING O N AN EMPTY STOMACH SOLD: 09/09/2020 [facility] 50 mcg 06/14/2020 12:00:00 AM EDT tablet 30 TAKE ONE TABLET BY MOUTH EVERY MORNING ON AN EMPTY STOMACH TAKE ONE TABLET BY MOUTH EVERY MORNING O N AN EMPTY STOMACH SOLD: 11/07/2020 [facility] 15 mg 05/15/2020 12:00:00 AM EDT tablet 30 TAKE ONE TABLET BY MOUTH EVERY DAY TAKE ONE TABLET BY MOUTH EVERY DAY SOLD: 10/07/2020 [facility] 15 mg 05/15/2020 12:00:00 AM EDT tablet 30 TAKE ONE TABLET BY MOUTH EVERY DAY TAKE ONE TABLET BY MOUTH EVERY DAY SOLD: 09/09/2020 [facility] 81 mg 04/13/2020 12:00:00 AM EDT tablet,delayed release (DR/EC) 30 TAKE ONE TABLET BY MOUTH EVERY DAY TAKE ONE TABLET BY MOUTH EVERY DAY SOLD: 09/09/2020 [facility] Insurance Providers Payer name Policy type / Coverage type Policy ID Covered democrat ID Covered democrat's relationship to carmona Policy [place] Plan Information [facility] [id number] SP [id number] [facility] [id number] S [id number] [facility] COMMUNITY PLAN [facility] [id number] SP [id number] ANSI-Medicaid [id number] [facility] Health Maintenance Organization (HMO) [id number] Self [id number] ANSI-Medicaid [id number] ANSI-Medicaid [id number] ANSI-Medicaid [id number] ANSI-Medicaid [id number] ANSI-Medicaid [id number] ANSI-Medicaid [id number] ANSI-Medicaid [id number] ANSI-Medicaid [id number] ANSI-Medicaid [id number] [facility] Medicaid Medicaid [id number] Self [id number] ca [employer] [id number] Self [facility] Health Maintenance Organization (HMO) [id number] Self [facility] [id number] [facility] Health Maintenance Organization (HMO) [id number] Self Problems, Conditions, and Diagnoses No Information Surgeries/Procedures No Information Results No Information Social History Code Duration Value Status Description Data Source(s ) Smoking 05/29/2021 12:00:00 AM EDT UNK completed eCW1 ([facility]) Smoking 05/29/2021 12:00:00 AM EDT UNK completed eCW1 ([facility]) Smoking 05/29/2021 12:00:00 AM EDT UNK completed eCW1 ([facility]) Smoking 12/05/2020 12:00:00 AM EST UNK completed eCW1 ([facility]) Vital Signs ID Date Data Source UNK Name Value Range Interpretation Code Description Data Source(s) Body weight 163 [lb_av] 163 [lb_av] eCW1 ([facility]) Body height [in_i] eCW1 ([facility]) Body mass index (BMI) [Ratio] 31.31 kg/m2 31.31 kg/m2 eCW1 ([facility]) Heart rate 89 /min 89 /min eCW1 ([facility]) Respiratory rate 18 /min 18 /min eCW1 ([facility]) Body temperature 98.7 [degF] 98.7 [degF] eCW1 ( [facility]) Systolic blood pressure 120 mm[Hg] 120 mm[Hg] e CW1 ([facility]) Diastolic blood pressure 72 mm[Hg] 72 mm[Hg] eCW1 ([facility])
--- OUTSIDE RECORDS SUMMARY | 2021-10-22 11:10 | CCD ---
Author Author [facility] Organization [facility] Address Unknown Phone Unavailable Care Team Providers Care Steel Heater Name Role Phone Sena Davis Unavailable PROBLEMS Type Condition ICD9-CM Code HOE16-HI Code Onset Dates Condition S tatus W/U Status Risk SNOMED Code Notes Problem Atrophic vaginitis N95.2 Active confirmed 5 2937624 Problem Macrocytosis D75.89 Active confirmed 0669725 00 Problem Calculus of gallbladder without cholecystitis wi thout obstruction K80.20 Active confirmed 71111761 Problem Type 2 diabetes mellitus wit hout complication, without long-term current use of insulin E11.9 Active confirmed 291174020 Problem Acquired hypothyroidism E03.9 Active confirmed 972434989 Problem Hyperlipidemia, unspecified hyperlipidemia type E7 8.5 Active confirmed 11603720 Problem Gastritis without bleeding, unspecified chronicity, unspecified gastritis type K29.70 Active confirmed 5312442 ALLERGIES No Known Allergies ENCOUNTERS from 1960 to 2021-09-05 Encounter Location Date Provider Diagnosis [address] [place] [address] Aug, Sena Davis IMMUNIZATIONS Vaccine Route Administration Date Status Influenza 18 yrs & older Flublok IM Intramuscular Aug 17, 2020 Administered Influenza 18 yrs & older Flublok IM Intramuscular Oct 16, 2018 Administered SOCIAL HISTORY Tobacco Use: Social History Observation Description Date Details (start date - stop date) Sex Assigned At : Social History Observation Description Sex Assigned At Unknown Audit Question Answer Notes Total Score: 0 Interpretation: Alcohol Education Sexual Hx: Question Answer Notes Had sex in the last 12 months (vaginal, oral, or anal)? No LMP: age 43 Have you ever had an STD? No Drug and Alcohol Question Answer Notes Total Score: 0 Interpretation: No problems reported Alcohol Screening: Question Answer Notes Did you have a drink containing alcohol in the past year? No Points 0 Interpretation Negative BMI Care Goal Follow-Up Question Answer Notes Above Normal BMI Follow-Up Dietary management educatio n, guidance, and counseling Tobacco Use: Question Answer Notes Are you a: never smoker REASON FOR REFERRAL No Information VITAL SIGNS No information MEDICATIONS Medication SIG (Take, Route, Frequency, Duration) Notes Start Da te End Date Status Trulicity 1.5 MG/0.5ML 1.5 mg Subcutaneous weekly for 28 Active Levothyroxine Sodium 50 MCG TAKE ONE TABLET BY MOUTH E VERY DAY IN THE MORNING for 30 Active Aspirin Low Dose 81 MG TAKE ONE TABLET BY MOUTH EVERY DAY for 30 Active Vitamin B12 1000 MCG 1 tablet Orally Once a day for 30 day(s) Aug, Active Lancets - as directed DX:E11.9 Daily for 50 days Nov, Active OneTouch Ultra 2 w/Device as directed DX:E11.9 Daily for 99 luis hs Nov, Active One touch ultra blue as directed DX:E11.9 Daily for 25 days Nov, Active metFORMIN HCl 1000 MG 1 tablet with meals Orally Twice a day for 30 Active Steglatro 15 MG TAKE ONE TABLET BY MOUTH EVERY DAY for 30 Active Atorvastatin Calcium 20 MG TAKE ONE TABLET BY MOUTH AT BEDTIME for 90 Active PROCEDURES No Information RESULTS No Results REASON FOR VISIT asprin EC 81 mg tab MEDICAL (GENERAL) HISTORY Type Description Date Medical History atrophic vaginitis Medical History DM2 diagnosed 02/2017 Medical History Hyperlipidemia - ASCVD Risk = 4% 02/2017 Medical History Hypothyroidism Medical History Gallstones per US and CT 12/2019 Surgical History C section x 4 1979,1981,1982,1986 Surgical History colonoscopy - non-bleeding hemorrhoids 2 017 Goals Section No Information Health Concerns No Information MEDICAL EQUIPMENT No Information MENTAL STATUS No Information FUNCTIONAL STATUS No Information ASSESSMENTS No Information PLAN OF TREATMENT Medication Medication Name Sig Start Date Stop Date Steglatro 15 MG TAKE ONE TABLET BY MOUTH EVERY DAY for 30 metFORMIN HCl 1000 MG 1 tablet with meals Orally Twice a day for 30 Aspirin Low Dose 81 MG TAKE ONE TABLET BY MOUTH EVERY DAY for 30 Atorvastatin Calcium 20 MG TAKE ONE TABLET BY MOUTH AT BEDTIME f or 90 Insurance Providers Payer Name Payer Address Payer Phone Insured Name Patient Relati onship to Insured Coverage Start Date Coverage End Date [facility] [address] [facility] [id number] SUSAN WEBB self
[2021-10-22 13:49] LABS: BASO # 0.1 10^3/uL (0.0-0.2); BASO % 0.5 % (0.0-1.0); EOS % 0.1 % (0.0-3.0); HEMATOCRIT 42.1 % (36.0-47.0); HEMOGLOBIN 14.2 g/dl (12.0-15.5); LYMPH # 1.8 10^3/uL (1.5-5.0); LYMPH % 14.8 % (24.0-44.0); MEAN CORPUSCULAR HEMOGLOBIN 31.3 pg (27.0-33.0); MEAN CORPUSCULAR HGB CONC 33.7 g/dl (32.0-36.5); MEAN CORPUSCULAR VOLUME 92.7 fl (80.0-96.0); MONO # 0.4 10^3/uL (0.0-0.8); MONO % 3.5 % (2.0-8.0); NEUTROPHILS % 80.5 % (36.0-66.0); PLATELET COUNT, AUTOMATED 400 10^3/uL (150-450); RED BLOOD COUNT 4.54 10^6/uL (4.00-5.40); WHITE BLOOD COUNT 12.4 10^3/uL (4.0-10.0)
[2021-10-22 14:46] LABS: ALBUMIN 4.2 GM/DL (3.2-5.2); ALT/SGPT 28 U/L (12-78); BILIRUBIN,DIRECT 0.1 MG/DL (0.0-0.2); BILIRUBIN,TOTAL 0.3 MG/DL (0.2-1.0); BLOOD UREA NITROGEN 15 MG/DL (7-18); CALCIUM LEVEL 10.3 MG/DL (8.8-10.2); CARBON DIOXIDE LEVEL 27 MEQ/L (21-32); CHLORIDE LEVEL 107 MEQ/L (98-107); GLOMERULAR FILTRATION RATE > 60.0 (>45); GLUCOSE, FASTING 110 MG/DL (70-100); LIPASE 101 U/L (73-393); POTASSIUM SERUM 4.4 MEQ/L (3.5-5.1); SODIUM LEVEL 139 MEQ/L (136-145); TOTAL PROTEIN 8.1 GM/DL (6.4-8.2)
--- NOTE | 2021-10-22 14:52 | REP ---
INDICATION: ruq/epigastric pain. COMPARISON: 02/20/2020. TECHNIQUE: Real-time sonographic evaluation of right upper quadrant performed. FINDINGS: There are multiple mobile subcentimeter gallstones in the gallbladder with no gallbladder wall thickening or pericholecystic fluid.. There is no intrahepatic or extrahepatic biliary dilatation, common bile duct measures 3 mm in maximum diameter. The liver demonstrates homogeneous echotexture with no gross mass. The visualized pancreas demonstrates homogeneous echotexture with no gross mass, the pancreas is not optimally seen due to overlying bowel gas. The right kidney demonstrates no hydronephrosis, with a normal size of 10.6 cm in length. There is a 6 mm cyst in the mid right kidney.No free fluid is seen. IMPRESSION: Multiple mobile subcentimeter gallstones in the gallbladder with no evidence of gallbladder wall thickening, free fluid or biliary dilatation. <Electronically signed by Zain Hernandez > 10/22/21 0621
[2021-10-22] MEDS ORDERED: AUGM875T28 PO (15:06)
--- OUTSIDE RECORDS SUMMARY | 2021-10-22 15:24 | CCD ---
Author Author [facility] Organization [facility] Address Unknown Phone Unavailable Care Team Providers Care Recoverer Name Role Phone Fadi Cha MD Unavailable [...] Unavailable Fadi Cha MD Unavailable Unavailable Gan, Luebbering Cheryl Unavailable Unavailable Gan, Luebbering Cheryl Unavailable Unavailable Gan, Luebbering Cheryl Unavailable Unavailable Gan, Luebbering Cheryl Unavailable Unavailable Gan, Luebbering Cheryl Unavailable Unavailable Gan, Luebbering Cheryl Unavailable Unavailable Gan, Luebbering Cheryl Unavailable Unavailable Gan, Luebbering Cheryl Unavailable Unavailable Gan, Luebbering Cheryl Unavailable Unavailable Gan, Luebbering Cheryl Unavailable Unavailable Gan, Luebbering Cheryl Unavailable Unavailable Gan, Luebbering Cheryl Unavailable Unavailable Gan, Luebbering Cheryl Unavailable Unavailable Re-disclosure Warning The records [...] is protected by Article 27-F of the [facility] Public Health law. If you continue you may have access to information: Regarding HIV / AIDS; Provided by facilities licensed or operated by the [facility] Office of Mental Health; or Provided by the [facility] Office for People With Developmental Disabilities. If such information is present, then the following [facility] mandated warning applies: This information has [...] law may result in a fine or senior living sentence or both. A general authorization for the release of medical or other information is NOT sufficient authorization for further disc losure. Allergies and Adverse Reactions Type Description Substance Reaction Status Data Source(s ) Allergy to substance Allergy to substance Allergy to substance PILLO ([facility]) Allergy to substance Allergy to substance Allergy to substance TRUMBULL ([facility]) Family History Family Member Name Family Member Gender Family Member Status Date o f Status Description Data Source(s) Unknown Unknown Problem MEDENT ([facility]) Unknown Unknown Problem MEDENT ([facility]) SIBLINGS Unknown Unknown Problem MEDENT ([facility]) Unknown Unknown Problem MEDENT ([facility]) Unknown Unknown Problem MEDENT ([facility]) Encounters Encounter Providers Location Date Indications Data Source(s ) [place] [address] [facility] [address] 09/05/2021 12:00:00 AM EDT eCW1 ([facility]) [place] [address] [facility] [address] 06/05/2021 12:00:00 AM EDT eCW1 ([facility]) [place] [address] [facility] [address] 05/29/2021 12:00:00 AM EDT eCW1 ([facility]) Unknown [address] [facility] [address] 03/05/2021 12:00:00 AM EDT eCW1 ([facility]) NGUYỄN [facility]: [address] [place] [address]4, Ph. Attender: Cheryl Gan [facility] Medical 02/07/2021 12:00:00 AM EDT PILLO ([facility]) Hipolito Cha MD: [address] [place] [address], Ph. Attender: Hipolito Cha MD [facility] Medical 01/10/2021 12:00:00 AM EST PILLO ([facility]) Hipolito Cha MD: [address] [place] [address], Ph. Attender: Hipolito Cha MD [facility] Medical 01/10/2021 12:00:00 AM EST PILLO ([facility]) [place] [address] [facility] [address] 10/04/2020 12:00:00 AM EST eCW1 ([facility]) Unknown [address] [facility] [address] 09/07/2020 12:00:00 AM EDT eCW1 ([facility]) Immunizations Vaccine Date Status Description Data Source(s) COVID-19, mRNA, LNP-S, PF, 100 mcg/0.5 mL dose 02/07/2021 10 :22:08 AM EDT completed 10.5 mL PILLO ([facility]) COVID-19 VACCINE Moderna 02/07/2021 12:00:00 AM EDT completed TXSIIS Vaccine Series Complete: YESThis Data wa s Submitted to [facility] Via [employer]. COVID-19, mRNA, LNP-S, PF, 100 mcg/0.5 mL dose 01/10/2021 05 :23:58 PM EST completed 10.5 mL PILLO ([facility]) COVID-19, mRNA, LNP-S, PF, 100 mcg/0.5 mL dose 01/10/2021 05 :23:58 PM EST completed .5 mL PILLO ([facility]) COVID-19 VACCINE Moderna 01/10/2021 12:00:00 AM EST completed [facility] Vaccine Series Complete: NOThis Data was Submitted to [facility] [employer]. Medications Medication Brand Name Start Date Product [...] TWICE A DAY WITH MEALS SOLD: 10/06/2021 [facility] 1,000 mg 06/06/2021 12:00:00 AM EDT [...] relationship to carmona Policy Carmona Plan Information [facility] COMMUNITY PLAN [facility] [id number] SP [id number] [facility]) O [id number] S [id number] [facility] COMMUNITY PLAN [facility] [id number] SP [id number] ANSI-Medicaid [id number] [facility] Health Maintenance Organization (HMO) [id number] Self [id number] ANSI-Medicaid [id number] ANSI-Medicaid [id number] ANSI-Medicaid [id number] ANSI-Medicaid [id number] ANSI-Medicaid [id number] ANSI-Medicaid [id number] ANSI-Medicaid [id number] ANSI-Medicaid [id number] ANSI-Medicaid [id number] [facility] Medicaid Medicaid [id number] Self [id number] ca [employer] [id number] Self [facility] Health Maintenance Organization (HMO) [id number] Self [facility] [id number] [facility] Health Maintenance Organization (HMO) [id number] Self Problems, Conditions, and Diagnoses No Information Surgeries/Procedures No Information Results No Information Social History Code Duration Value Status Description Data Source(s ) Smoking 05/29/2021 12:00:00 AM EDT UNK completed eCW1 ([facility]) Smoking 05/29/2021 12:00:00 AM EDT UNK completed eCW1 ([facility]) Smoking 05/29/2021 12:00:00 AM EDT UNK completed eCW1 ([facility]) Smoking 12/05/2020 12:00:00 AM EST UNK completed eCW1 ([facility]) Vital Signs ID Date Data Source UNK Name Value Range Interpretation Code Description Data Source(s) Body weight 163 [lb_av] 163 [lb_av] eCW1 ([facility]) Body height [in_i] eCW1 ([facility]) Body mass index (BMI) [Ratio] 31.31 kg/m2 31.31 kg/m2 eCW1 ([facility]) Heart rate 89 /min 89 /min eCW1 ([facility]) Respiratory rate 18 /min 18 /min eCW1 ([facility]) Body temperature 98.7 [degF] 98.7 [degF] eCW1 ( [facility]) Systolic blood pressure 120 mm[Hg] 120 mm[Hg] e CW1 ([facility]) Diastolic blood pressure 72 mm[Hg] 72 mm[Hg] eCW1 ([facility])
[2021-10-22 16:00] VITALS: BP 125/60
== END 2021-10-22 16:02 | disposition home or self-care (01) ==
LOC: M ED 11:04
DX: K80.50 Calculus of bile duct without cholangitis or cholecystitis without obstruction (principal); K80.20 Calculus of gallbladder without cholecystitis without obstruction; E11.9 Type 2 diabetes mellitus without complications; E78.5 Hyperlipidemia, unspecified; Z78.0 Asymptomatic menopausal state; Z87.442 Personal history of urinary calculi; Z79.84 Long term (current) use of oral hypoglycemic drugs; Z79.82 Long term (current) use of aspirin

== ENCOUNTER → 2021-11-19 | Outpatient (REF) | payer OTHER ==
[~2021-11-19] MED LIST changes: +AUGM875T28 PO
[2021-11-19 13:27] LABS: HEMOGLOBIN A1c 6.5 %
[2021-11-19 13:53] LABS: MALB URINE SIEMENS 13.5 MG/L; MAU/CREAT RATIO 11.1 MCG/MG (0.0-30.0)
[2021-11-19 13:59] LABS: ALBUMIN 4.3 GM/DL (3.2-5.2); ALT/SGPT 44 U/L (12-78); BILIRUBIN,TOTAL 0.5 MG/DL (0.2-1.0); BLOOD UREA NITROGEN 23 MG/DL (7-18); CALCIUM LEVEL 9.4 MG/DL (8.8-10.2); CARBON DIOXIDE LEVEL 26 MEQ/L (21-32); CHLORIDE LEVEL 103 MEQ/L (98-107); CHOLESTEROL LEVEL 122 MG/DL (<200); CHOLESTEROL RISK RATIO 2.178 (<5); CREATININE FOR GFR 0.62 MG/DL (0.55-1.30); FREE T4 1.21 NG/DL (0.76-1.46); GLOMERULAR FILTRATION RATE > 60.0 (>45); GLUCOSE, FASTING 101 MG/DL (70-100); HDL CHOLESTEROL 56 MG/DL (>40); LDL CHOLESTEROL 50 MG/DL (<100); NON-HDL-C 66 MG/DL; POTASSIUM SERUM 4.4 MEQ/L (3.5-5.1); SODIUM LEVEL 138 MEQ/L (136-145); TOTAL PROTEIN 7.9 GM/DL (6.4-8.2); TRIGLYCERIDES LEVEL 81 MG/DL (<150)
== END ==
LOC: M SFHCADAM 09:41
PROVIDERS: ATTEND Physician Assistant
DX: E11.9 Type 2 diabetes mellitus without complications (principal); E03.9 Hypothyroidism, unspecified; E78.5 Hyperlipidemia, unspecified

== ENCOUNTER → 2021-12-31 | Outpatient (CLI) | payer OTHER ==
[~2021-12-31] MED LIST changes: -LEVO50TA5; +LEVO50TA5 PO; +TRUL0.5I SC
== END ==
LOC: M LABSMTC 09:21
PROVIDERS: ATTEND Anesthesiology
DX: Z01.812 Encounter for preprocedural laboratory examination (principal); Z20.822 Contact with and (suspected) exposure to COVID-19

== ENCOUNTER → 2022-01-04 | Day surgery (SDC) | payer OTHER ==
[~2022-01-04] VITALS: Ht 152.4 cm; Wt 73.5 kg
[~2022-01-04] MED LIST changes: +ACETAMINOPHEN 1000MG 100ML IV BTL (OFIRMEV) (J0131 PER 10MG) As Ordered ONE; +BUPIVACAINE HCL 0.25% 30ML VIAL As Ordered ONE; +DESFLURANE 240 ML INHALANT As Ordered ONE; +KETOROLAC 60MG 2ML VIAL As Ordered ONE; +LABETALOL 100MG/20ML VIAL As Ordered ONE; +LIDOCAINE 2% 100MG/5ML SDV (FOR ANES.) As Ordered ONE; +LIDOCAINE W/EPINEPHRINE 1% 20ML VIAL As Ordered ONE; +LR 1,000 ML IV ONE; +LR 1,000 ML IV SCH; +METOCLOPRAMIDE INJ 10MG/2ML VIAL (J2765 PER 1) As Ordered ONE; +MIDAZOLAM INJ 2MG/2ML VIAL (J2250 PER 1MG) As Ordered ONE; +NORCO, ANEXSIA 5/325MG TABLET (HYDROcodone/ACETAMINOPHEN) PO PRN; +ONDANSETRON 4MG/2ML VIAL As Ordered ONE; +ONDANSETRON 4MG/2ML VIAL IV PRN; +ROCURONIUM BROMIDE 50 MG/5 ML VIAL As Ordered ONE; +SUGAMMADEX SODIUM 500 MG/5 ML VIAL (BRIDION) As Ordered ONE; +dexameTHASONE 4 MG/ML 1ML VIAL (J1100 PER 1MG) As Ordered ONE; +fentaNYL 100 MCG/2 ML INJECTION IV PRN; +fentaNYL 250 MCG/5 ML INJECTION As Ordered ONE; +oxyCODONE 5MG TAB PO PRN; +propofoL 200 MG/20 ML VIAL As Ordered ONE
[2022-01-04 10:25] VITALS: BP 126/58
== END | disposition home or self-care (01) ==
LOC: M SDC 06:07
PROVIDERS: ATTEND Surgery
DX: K80.10 Calculus of gallbladder with chronic cholecystitis without obstruction (principal); E78.5 Hyperlipidemia, unspecified; E11.9 Type 2 diabetes mellitus without complications; Z79.84 Long term (current) use of oral hypoglycemic drugs; Z79.82 Long term (current) use of aspirin; Z79.899 Other long term (current) drug therapy
CPT/HCPCS: 47562; 88304; J0131; J1100; J1885; J2250; J2405; J2765; J3010; S2900

== ENCOUNTER → 2022-03-06 | Outpatient (CLI) | payer OTHER ==
[~2022-03-06] MED LIST changes: -ACETAMINOPHEN 1000MG 100ML IV BTL (OFIRMEV) (J0131 PER 10MG) As Ordered ONE; -BUPIVACAINE HCL 0.25% 30ML VIAL As Ordered ONE; -DESFLURANE 240 ML INHALANT As Ordered ONE; -KETOROLAC 60MG 2ML VIAL As Ordered ONE; -LABETALOL 100MG/20ML VIAL As Ordered ONE; -LIDOCAINE 2% 100MG/5ML SDV (FOR ANES.) As Ordered ONE; -LIDOCAINE W/EPINEPHRINE 1% 20ML VIAL As Ordered ONE; -LR 1,000 ML IV ONE; -LR 1,000 ML IV SCH; -METOCLOPRAMIDE INJ 10MG/2ML VIAL (J2765 PER 1) As Ordered ONE; -MIDAZOLAM INJ 2MG/2ML VIAL (J2250 PER 1MG) As Ordered ONE; -NORCO, ANEXSIA 5/325MG TABLET (HYDROcodone/ACETAMINOPHEN) PO PRN; -ONDANSETRON 4MG/2ML VIAL As Ordered ONE; -ONDANSETRON 4MG/2ML VIAL IV PRN; -ROCURONIUM BROMIDE 50 MG/5 ML VIAL As Ordered ONE; -SUGAMMADEX SODIUM 500 MG/5 ML VIAL (BRIDION) As Ordered ONE; -dexameTHASONE 4 MG/ML 1ML VIAL (J1100 PER 1MG) As Ordered ONE; -fentaNYL 100 MCG/2 ML INJECTION IV PRN; -fentaNYL 250 MCG/5 ML INJECTION As Ordered ONE; -oxyCODONE 5MG TAB PO PRN; -propofoL 200 MG/20 ML VIAL As Ordered ONE
== END ==
LOC: M WHC 09:30
PROVIDERS: ATTEND Physician Assistant
DX: Z12.31 Encounter for screening mammogram for malignant neoplasm of breast (principal); N63.11 Unspecified lump in the right breast, upper outer quadrant
CPT/HCPCS: 76642; 77065; G0279

== ENCOUNTER → 2022-05-21 | Outpatient (REF) | payer OTHER ==
[2022-05-21 13:22] LABS: HEMOGLOBIN A1c 6.7 %
[2022-05-21 13:40] LABS: ALT/SGPT 29 U/L (12-78); BILIRUBIN,TOTAL 0.4 MG/DL (0.2-1.0); BLOOD UREA NITROGEN 14 MG/DL (7-18); CALCIUM LEVEL 9.4 MG/DL (8.8-10.2); CARBON DIOXIDE LEVEL 27 MEQ/L (21-32); CHLORIDE LEVEL 105 MEQ/L (98-107); CREATININE FOR GFR 0.72 MG/DL (0.55-1.30); GLOMERULAR FILTRATION RATE > 60.0 (>45); GLUCOSE, FASTING 124 MG/DL (70-100); POTASSIUM SERUM 4.4 MEQ/L (3.5-5.1); SODIUM LEVEL 138 MEQ/L (136-145); TOTAL PROTEIN 7.3 GM/DL (6.4-8.2)
== END ==
LOC: M SFHCADAM 07:56
PROVIDERS: ATTEND Physician Assistant
DX: E11.9 Type 2 diabetes mellitus without complications (principal); E03.9 Hypothyroidism, unspecified; E78.5 Hyperlipidemia, unspecified

== ENCOUNTER → 2022-09-18 | Outpatient (CLI) | payer OTHER | LOC: M WHC 11:00 | PROVIDERS: ATTEND Physician Assistant | DX: R92.2 Inconclusive mammogram (principal) ==

== ENCOUNTER → 2022-11-21 | Outpatient (REF) | payer OTHER ==
[2022-11-21 13:15] LABS: HEMATOCRIT 41.5 % (36.0-47.0); HEMOGLOBIN 13.5 g/dl (12.0-15.5); MEAN CORPUSCULAR HEMOGLOBIN 30.8 pg (27.0-33.0); MEAN CORPUSCULAR HGB CONC 32.5 g/dl (32.0-36.5); MEAN CORPUSCULAR VOLUME 94.7 fl (80.0-96.0); PLATELET COUNT, AUTOMATED 334 10^3/uL (150-450); RED BLOOD COUNT 4.38 10^6/uL (4.00-5.40); WHITE BLOOD COUNT 7.4 10^3/uL (4.0-10.0)
[2022-11-21 13:35] LABS: HEMOGLOBIN A1c 7.2 % (4.0-6.0)
[2022-11-21 13:53] LABS: THYROID STIMULATING HORMONE 1.974 uIU/ML (0.55-4.78)
[2022-11-21 13:54] LABS: FREE T4 1.35 NG/DL (0.89-1.76)
[2022-11-21 13:59] LABS: ALBUMIN 4.1 G/DL (3.2-5.2); ALKALINE PHOSPHATASE 79 U/L (46-116); ALT/SGPT 36 U/L (7.0-40); AST/SGOT 21 U/L (<34); BILIRUBIN,TOTAL 0.6 MG/DL (0.3-1.2); BLOOD UREA NITROGEN 16 MG/DL (9-23); CALCIUM LEVEL 9.4 MG/DL (8.3-10.6); CARBON DIOXIDE LEVEL 25 MMOL/L (20-31); CHLORIDE LEVEL 103 MMOL/L (98-107); CHOLESTEROL LEVEL 112 MG/DL (<200); CHOLESTEROL RISK RATIO 2.34 (<5); CREATININE FOR GFR 0.57 MG/DL (0.55-1.30); GLOMERULAR FILTRATION RATE > 60.0 (>45); GLUCOSE, FASTING 113 MG/DL (74-106); HDL CHOLESTEROL 47.8 MG/DL (>40); LDL CHOLESTEROL 44.4 MG/DL (<100); NON-HDL-C 64 MG/DL; POTASSIUM SERUM 4.8 MMOL/L (3.5-5.1); SODIUM LEVEL 139 MMOL/L (136-145); TOTAL PROTEIN 7.1 G/DL (5.7-8.2); TRIGLYCERIDES LEVEL 99 MG/DL (<150)
== END ==
LOC: M SFHCADAM 09:37
PROVIDERS: ATTEND Physician Assistant
DX: E11.9 Type 2 diabetes mellitus without complications (principal); E78.5 Hyperlipidemia, unspecified; E03.9 Hypothyroidism, unspecified

== ENCOUNTER → 2023-06-13 | Outpatient (CLI) | payer MEDICAID, OTHER | LOC: M WHC 09:00 | PROVIDERS: ATTEND Physician Assistant | DX: Z12.31 Encounter for screening mammogram for malignant neoplasm of breast (principal); Z53.9 Procedure and treatment not carried out, unspecified reason ==

== ENCOUNTER → 2023-06-13 | Outpatient (REF) | payer MEDICAID, OTHER | LOC: M SFHCADAM 13:13 | PROVIDERS: ATTEND Physician Assistant | DX: Z12.4 Encounter for screening for malignant neoplasm of cervix (principal) ==

== ENCOUNTER → 2023-09-29 | Outpatient (REF) | payer MEDICAID ==
[~2023-09-29] MED LIST changes: +LORA-1041; -LORA-674
[2023-09-29 13:25] LABS: BLOOD UREA NITROGEN 16 MG/DL (9-23); CALCIUM LEVEL 9.5 MG/DL (8.3-10.6); CARBON DIOXIDE LEVEL 28 MMOL/L (20-31); CHLORIDE LEVEL 102 MMOL/L (98-107); CREATININE FOR GFR 0.61 MG/DL (0.55-1.30); GLOMERULAR FILTRATION RATE > 60.0 (>45); GLUCOSE, FASTING 193 MG/DL (74-106); POTASSIUM SERUM 5.1 MMOL/L (3.5-5.1); SODIUM LEVEL 139 MMOL/L (136-145)
[2023-09-29 13:29] LABS: HEMOGLOBIN A1c 7.3 % (4.0-6.0)
== END ==
LOC: M SFHCADAM 10:46
PROVIDERS: ATTEND Physician Assistant
DX: Z12.4 Encounter for screening for malignant neoplasm of cervix (principal); E11.9 Type 2 diabetes mellitus without complications; Z12.31 Encounter for screening mammogram for malignant neoplasm of breast; Z12.39 Encounter for other screening for malignant neoplasm of breast

== ENCOUNTER → 2024-02-02 | Outpatient (CLI) | payer OTHER | LOC: M WHC 09:49 | PROVIDERS: ATTEND Physician Assistant | DX: Z12.31 Encounter for screening mammogram for malignant neoplasm of breast (principal) ==

== ENCOUNTER → 2024-08-12 | Outpatient (REF) | payer MEDICAID ==
[~2024-08-12] MED LIST changes: +ONDA-282 PO; -ONDA4TAB6 PO
[2024-08-12 13:33] LABS: HEMATOCRIT 43.8 % (36.0-47.0); HEMOGLOBIN 14.8 g/dl (12.0-15.5); MEAN CORPUSCULAR HEMOGLOBIN 31.7 pg (27.0-33.0); MEAN CORPUSCULAR HGB CONC 33.8 g/dl (32.0-36.5); MEAN CORPUSCULAR VOLUME 93.8 fl (80.0-96.0); PLATELET COUNT, AUTOMATED 373 10^3/uL (150-450); RED BLOOD COUNT 4.67 10^6/uL (4.00-5.40); WHITE BLOOD COUNT 7.3 10^3/uL (4.0-10.0)
[2024-08-12 13:58] LABS: CREATININE, URINE 96.8 MG/DL; MALB URINE SIEMENS < 3.0 MG/L
[2024-08-12 13:59] LABS: ALBUMIN 4.1 G/DL (3.2-5.2); ALKALINE PHOSPHATASE 74 U/L (46-116); ALT/SGPT 29 U/L (7.0-40); AST/SGOT 16 U/L (<34); BILIRUBIN,TOTAL 0.7 MG/DL (0.3-1.2); BLOOD UREA NITROGEN 14 MG/DL (9-23); CALCIUM LEVEL 9.6 MG/DL (8.3-10.6); CARBON DIOXIDE LEVEL 27 MMOL/L (20-31); CHLORIDE LEVEL 105 MMOL/L (98-107); CHOLESTEROL LEVEL 123 MG/DL (<200); CHOLESTEROL RISK RATIO 2.55 (<5); CREATININE FOR GFR 0.61 MG/DL (0.55-1.30); GLOMERULAR FILTRATION RATE > 60.0 (>45); GLUCOSE, FASTING 129 MG/DL (74-106); HDL CHOLESTEROL 48.2 MG/DL (>40); LDL CHOLESTEROL 55.6 MG/DL (<100); NON-HDL-C 74.8 MG/DL; POTASSIUM SERUM 4.6 MMOL/L (3.5-5.1); SODIUM LEVEL 139 MMOL/L (136-145); TOTAL PROTEIN 7.5 G/DL (5.7-8.2); TRIGLYCERIDES LEVEL 96 MG/DL (<150)
[2024-08-12 14:00] LABS: FOLATE > 24.0 NG/ML (>5.4); FREE T4 1.37 NG/DL (0.89-1.76); VITAMIN B12 LEVEL 1091 PG/ML (211-911)
[2024-08-12 14:01] LABS: THYROID STIMULATING HORMONE 1.846 uIU/ML (0.55-4.78)
[2024-08-12 14:12] LABS: HEMOGLOBIN A1c 7.1 % (4.0-6.0)
== END ==
LOC: M SFHCADAM 11:00
PROVIDERS: ATTEND Physician Assistant
DX: E11.9 Type 2 diabetes mellitus without complications (principal); Z12.31 Encounter for screening mammogram for malignant neoplasm of breast; E03.9 Hypothyroidism, unspecified

== ENCOUNTER → 2025-02-24 | Outpatient (REF) | payer MEDICAID ==
[2025-02-24 15:26] LABS: ALBUMIN 3.9 G/DL (3.2-5.2); ALKALINE PHOSPHATASE 59 U/L (35-104); ALT/SGPT 28 U/L (7.0-40); AST/SGOT 15 U/L (<34); BILIRUBIN,TOTAL 0.4 MG/DL (0.3-1.2); BLOOD UREA NITROGEN 12 MG/DL (9-23); CALCIUM LEVEL 9.4 MG/DL (8.3-10.6); CARBON DIOXIDE LEVEL 30 MMOL/L (20-31); CHLORIDE LEVEL 106 MMOL/L (98-107); CREATININE FOR GFR 0.52 MG/DL (0.55-1.30); GLOMERULAR FILTRATION RATE > 90.0 (>45); GLUCOSE, FASTING 133 MG/DL (74-106); POTASSIUM SERUM 4.4 MMOL/L (3.5-5.1); SODIUM LEVEL 145 MMOL/L (136-145); TOTAL PROTEIN 7.1 G/DL (5.7-8.2)
[2025-02-24 16:04] LABS: HEMOGLOBIN A1c 6.8 % (4.0-6.0)
== END ==
LOC: M SFHCADAM 08:04
PROVIDERS: ATTEND Physician Assistant
DX: E11.9 Type 2 diabetes mellitus without complications (principal)

== ENCOUNTER → 2025-03-01 | Outpatient (CLI) | payer OTHER, MEDICAID ==
[~2025-03-01] MED LIST changes: +CEFD1CAP9 PO; +FLON1SPR NARES; +LISI10TA22
== END ==
LOC: M WHC 08:56
PROVIDERS: ATTEND Physician Assistant
DX: Z12.31 Encounter for screening mammogram for malignant neoplasm of breast (principal)

== ENCOUNTER 2025-03-07 15:15 | Emergency (ER) | payer OTHER, MEDICAID ==
[~2025-03-07] VITALS: Ht 152.4 cm; Wt 75.1 kg
[~2025-03-07 15:15] MED LIST changes: -CEFD1CAP9 PO; -FLON1SPR NARES; -LISI10TA22
[2025-03-07] MEDS ORDERED: LISI10TA22 (15:31)
[2025-03-07 16:31] VITALS: O2SAT 97
[2025-03-07] MEDS: NIFEdipine 10 MG CAP PO ONE (17:22)
[2025-03-07 17:38] LABS: BASO # 0.1 10^3/uL (0.0-0.2); BASO % 1.1 % (0.0-1.0); EOS # 0.1 10^3/uL (0.0-0.5); EOS % 1.5 % (0.0-3.0); HEMATOCRIT 45.1 % (36.0-47.0); LYMPH # 2.9 10^3/uL (1.5-5.0); LYMPH % 33.7 % (24.0-44.0); MEAN CORPUSCULAR HEMOGLOBIN 31.3 pg (27.0-33.0); MEAN CORPUSCULAR HGB CONC 33.3 g/dl (32.0-36.5); MEAN CORPUSCULAR VOLUME 94.2 fl (80.0-96.0); MONO # 0.6 10^3/uL (0.0-0.8); MONO % 6.9 % (2.0-8.0); NEUTROPHILS # 4.8 10^3/uL (1.5-8.5); NEUTROPHILS % 56.6 % (36.0-66.0); PLATELET COUNT, AUTOMATED 424 10^3/uL (150-450); RED BLOOD COUNT 4.79 10^6/uL (4.00-5.40); WHITE BLOOD COUNT 8.5 10^3/uL (4.0-10.0)
[2025-03-07 17:50] VITALS: BP 144/70
[2025-03-07 17:59] LABS: CK-MB VALUE MASS < 1.0 NG/ML (<3.6)
[2025-03-07 18:00] LABS: BLOOD UREA NITROGEN 16 MG/DL (9-23); CARBON DIOXIDE LEVEL 30 MMOL/L (20-31); CHLORIDE LEVEL 102 MMOL/L (98-107); CPK CREATINE PHOSPHOKINASE 71 U/L (34-145); CREATININE FOR GFR 0.63 MG/DL (0.55-1.30); GLOMERULAR FILTRATION RATE > 90.0 (>45); GLUCOSE, FASTING 114 MG/DL (74-106); POTASSIUM SERUM 3.8 MMOL/L (3.5-5.1); SODIUM LEVEL 140 MMOL/L (136-145)
[2025-03-07] MEDS ORDERED: CEFD1CAP9 PO (18:20)
[2025-03-07] MEDS ORDERED: FLON1SPR NARES (18:20)
[2025-03-07 18:25] VITALS: TEMP 97.9
== END 2025-03-07 18:26 | disposition home or self-care (01) ==
LOC: M ED 15:15
DX: J01.90 Acute sinusitis, unspecified (principal); I10 Essential (primary) hypertension; E11.9 Type 2 diabetes mellitus without complications; E78.5 Hyperlipidemia, unspecified; Z79.82 Long term (current) use of aspirin; Z79.01 Long term (current) use of anticoagulants; Z79.2 Long term (current) use of antibiotics; Z79.85 Long-term (current) use of injectable non-insulin antidiabetic drugs; Z79.84 Long term (current) use of oral hypoglycemic drugs; Z79.899 Other long term (current) drug therapy; Z79.890 Hormone replacement therapy

== ENCOUNTER → 2025-08-30 | Outpatient (REF) | payer OTHER, MEDICAID ==
[~2025-08-30] MED LIST changes: +CEFD1CAP9 PO; +FLON1SPR NARES; +LISI10TA22
[2025-08-30 14:39] LABS: PLATELET COUNT, AUTOMATED 384 10^3/uL (150-450)
[2025-08-30 14:57] LABS: ESTIMATED AVERAGE GLUCOSE 171.0 MG/DL (60-110)
[2025-08-30 15:08] LABS: CREATININE, URINE 77.4 MG/DL; MALB URINE SIEMENS < 3.0 MG/L
[2025-08-30 15:10] LABS: FREE T4 1.26 NG/DL (0.89-1.76)
[2025-08-30 15:11] LABS: VITAMIN B12 LEVEL 660 PG/ML (211-911)
[2025-08-30 15:12] LABS: ALT/SGPT 31 U/L (7.0-40); AST/SGOT 20 U/L (<34); CALCIUM LEVEL 9.9 MG/DL (8.3-10.6); CARBON DIOXIDE LEVEL 27 MMOL/L (20-31); CHLORIDE LEVEL 104 MMOL/L (98-107); CHOLESTEROL LEVEL 114 MG/DL (<200); CHOLESTEROL RISK RATIO 2.47 (<5); CREATININE FOR GFR 0.63 MG/DL (0.55-1.30); GLOMERULAR FILTRATION RATE > 90.0 (>45); LDL CHOLESTEROL 44.8 MG/DL (<100); NON-HDL-C 68.0 MG/DL; POTASSIUM SERUM 5.0 MMOL/L (3.5-5.1); SODIUM LEVEL 141 MMOL/L (136-145); TRIGLYCERIDES LEVEL 116 MG/DL (<150)
== END ==
LOC: M SFHCADAM 08:46
PROVIDERS: ATTEND Physician Assistant
DX: Z00.00 Encounter for general adult medical examination without abnormal findings (principal); E11.9 Type 2 diabetes mellitus without complications; E03.9 Hypothyroidism, unspecified; E78.5 Hyperlipidemia, unspecified; Z12.31 Encounter for screening mammogram for malignant neoplasm of breast